=== PATIENT | male | born 1950 | race Caucasian/White ===

== ENCOUNTER 2016-10-13 17:45 | Inpatient (IN) | payer MEDICARE ==
[2016-10-13] MEDS ORDERED: IPRATROPIUM 0.5 MG/2.5 ML NEBU INHALATION STA (17:57)
[2016-10-13] MEDS ORDERED: ALBUTEROL NEBULIZED 2.5 MG/3 ML INHALATION STA (17:57)
[2016-10-13] MEDS ORDERED: SODIUM CHLORIDE 0.9% 1,000 ML IV STA ×2 (17:57)
[2016-10-13] MEDS ORDERED: ACETAMINOPHEN TAB 500 MG TAB PO STA (17:58)
[2016-10-13] MEDS ORDERED: IBUPROFEN 600 MG TAB PO STA (17:58)
[2016-10-13 18:19] LABS: Basophils % (A) 1 %; CH 32.8; CHCM 34.8; Eosinophils % (A) 0 %; HCT 39.7 % (39.0-53.0); HGB 13.2 gm/dL (13.0-17.5); Luc % (Auto) 3; Lymphocytes # (A) 0.4 k/uL (1.0-4.8); Lymphocytes % (A) 5 %; MCH 31.6 pg (25.0-35.0); MCHC 33.4 g/dL (31.0-37.0); MCV 94.6 fL (80.0-100.0); Mean Platelet Volume 6.9; Monocytes % (A) 12 %; Neutrophils # (A) 6.4 k/uL (1.3-7.7); Neutrophils % (A) 79 %; RBC 4.19 m/uL (4.30-5.90); WBC 8.1 k/uL (3.8-10.6); WBC (Perox) 7.58
[2016-10-13 18:26] LABS: INR 1.1 (<1.1)
[2016-10-13 18:32] LABS: ALT 36 U/L (21-72); AST 31 U/L (17-59); Alkaline Phosphatase 114 U/L (38-126); Anion Gap 12 mmol/L; Blood Urea Nitrogen 11 mg/dL (9-20); Carbon Dioxide 23 mmol/L (22-30); Chloride 95 mmol/L (98-107); Glucose 86 mg/dL (74-99); Magnesium 1.8 mg/dL (1.6-2.3); Non-African American GFR(MDRD) >60 (>60 ml/min/1.73 sqM); Potassium 4.1 mmol/L (3.5-5.1); Sodium 130 mmol/L (137-145); Total Bilirubin 0.7 mg/dL (0.2-1.3); Total Protein 6.9 g/dL (6.3-8.2)
[2016-10-13] MEDS ORDERED: LEVOFLOXACIN 750MG-D5W PMX 750 MG in DEXTROSE/WATER 1 150ML.BAG IVPB STA (18:42)
[2016-10-13] MEDS ORDERED: MORPHINE SULFATE 4 MG/ML SYRINGE IVP STA (18:42)
[2016-10-13] MEDS ORDERED: MORPHINE SULFATE 4 MG/ML SYRINGE IVP PRN (18:42)
[2016-10-13] MEDS ORDERED: LEVOFLOXACIN 750MG-D5W PMX 750 MG in DEXTROSE/WATER 1 150ML.BAG IVPB SCH (18:45)
[2016-10-13] MEDS ORDERED: PNEUMONIA PROTOCOL UTILIZED 1 EACH MISC PO PRN (18:54)
--- NOTE | 2016-10-13 18:56 | ED ---
General Adult HPI - General Chief complaint: Shortness of Breath Stated complaint: SOB Time Seen by Provider: 10/13/16 17:57 Source: patient, RN notes reviewed, old records reviewed Mode of arrival: wheelchair Limitations: no limitations - History of Present Illness Initial comments: This is a 65-year-old male to the ER for evaluation stressing of breath cough and congestion. Patient states he is having increasing shortness of breath worse with ambulation worse with activity. No recent travel history and no sick contacts. Patient has no recent hospitalizations. Patient has had a loose productive cough 1 week. No modifying factors at home - Related Data Home Medications Medication Instructions Recorded Confirmed Aspirin [Adult Low Dose Aspirin EC] 81 mg PO DAILY 12/10/15 10/13/16 Furosemide [Lasix] 10 mg PO DAILY PRN 12/10/15 10/13/16 Losartan Potassium [Cozaar] 100 mg PO DAILY 10/13/16 10/13/16 amLODIPine BESYLATE [Norvasc] 10 mg PO HS 10/13/16 10/13/16 diphenhydrAMINE HCL [Benadryl] 25 mg PO HS PRN 10/13/16 10/13/16 Allergies Allergy/AdvReac Type Severity Reaction Status Date / Time No Known Allergies Allergy Verified 10/13/16 18:25 Review of Systems ROS Statement: Those systems with pertinent positive or pertinent negative responses have been documented in the HPI. ROS Other: All systems not noted in ROS Statement are negative. Past Medical History Past Medical History: Heart Failure, Hypertension History of Any Multi-Drug Resistant Organisms: None Reported Past Surgical History: No Surgical Hx Reported Additional Past Surgical History / Comment(s): jaw Past Psychological History: No Psychological Hx Reported Smoking Status: Current every day smoker Past Alcohol Use History: Daily Past Drug Use History: None Reported General Exam Limitations: no limitations General appearance: alert, in no apparent distress, anxious, in distress, obese Head exam: Present: atraumatic, normocephalic, normal inspection Eye exam: Present: normal appearance, PERRL, EOMI. Absent: scleral icterus, conjunctival injection, periorbital swelling ENT exam: Present: mucous membranes dry Neck exam: Present: normal inspection. Absent: tenderness, meningismus, lymphadenopathy Respiratory exam: Present: normal lung sounds bilaterally, wheezes, chest wall tenderness, accessory muscle use, decreased breath sounds. Absent: respiratory distress, rales, rhonchi, stridor Cardiovascular Exam: Present: normal rhythm, tachycardia, normal heart sounds. Absent: systolic murmur, diastolic murmur, rubs, gallop, clicks GI/Abdominal exam: Present: soft, normal bowel sounds. Absent: distended, tenderness, guarding, rebound, rigid Extremities exam: Present: normal inspection, full ROM, normal capillary refill. Absent: tenderness, pedal edema, joint swelling, calf tenderness Back exam: Present: normal inspection Neurological exam: Present: alert, oriented X3, CN II-XII intact Psychiatric exam: Present: normal affect, normal mood Skin exam: Present: warm, dry, intact, normal color. Absent: rash Course Vital Signs 10/13/16 10/13/16 10/13/16 17:51 18:48 18:53 Temperature 101.8 F H Pulse Rate 101 H 96 96 Respiratory 22 20 Rate Blood Pressure 198/93 192/88 O2 Sat by Pulse 98 100 Oximetry 10/13/16 10/13/16 10/13/16 19:03 19:12 19:23 Temperature Pulse Rate 96 97 97 Respiratory Rate Blood Pressure O2 Sat by Pulse Oximetry 10/13/16 10/13/16 19:30 19:46 Temperature 99.0 F Pulse Rate 93 Respiratory 20 Rate Blood Pressure 176/77 O2 Sat by Pulse 95 Oximetry - Reevaluation(s) Reevaluation #1: 10/13/16 19:51 Patient is improved with breathing treatment and fever control EKG Findings - EKG Comments: EKG Findings:: EKG shows sinus rhythm rate of 98, WV 202, QRS 132, QTC 487 Medical Decision Making - Medical Decision Making 65 male ER for evaluation of shortness of breath cough and congestion, positive pneumonia x-ray with fever and elevated heart rate. Patient BMA for IV antibiotics and breathing treatments. Cardiopulmonary resuscitation and observation - Lab Data Result diagrams: 10/13/16 17:58 10/13/16 17:58 Lab Results 10/13/16 10/13/16 10/13/16 Range/Units 17:58 17:58 17:58 WBC 8.1 (3.8-10.6) k/uL RBC 4.19 L (4.30-5.90) m/uL Hgb 13.2 (13.0-17.5) gm/dL Hct 39.7 (39.0-53.0) % MCV 94.6 (80.0-100.0) fL MCH 31.6 (25.0-35.0) pg MCHC 33.4 (31.0-37.0) g/dL RDW 13.0 (11.5-15.5) % Plt Count 262 (150-450) k/uL Neutrophils % 79 % Lymphocytes % 5 % Monocytes % 12 % Eosinophils % 0 % Basophils % 1 % Neutrophils # 6.4 (1.3-7.7) k/uL Lymphocytes # 0.4 L (1.0-4.8) k/uL Monocytes # 1.0 (0-1.0) k/uL Eosinophils # 0.0 (0-0.7) k/uL Basophils # 0.0 (0-0.2) k/uL PT (9.0-12.0) sec INR (<1.1) APTT (22.0-30.0) sec Sodium 130 L (137-145) mmol/L Potassium 4.1 (3.5-5.1) mmol/L Chloride 95 L (98-107) mmol/L Carbon Dioxide 23 (22-30) mmol/L Anion Gap 12 mmol/L BUN 11 (9-20) mg/dL Creatinine 0.86 (0.66-1.25) mg/dL Est GFR (MDRD) Af Amer >60 (>60 ml/min/1.73 sqM) Est GFR (MDRD) Non-Af >60 (>60 ml/min/1.73 sqM) Glucose 86 (74-99) mg/dL Plasma Lactic Acid Severiano (0.7-2.0) mmol/L Calcium 9.0 (8.4-10.2) mg/dL Magnesium 1.8 (1.6-2.3) mg/dL Total Bilirubin 0.7 (0.2-1.3) mg/dL AST 31 (17-59) U/L ALT 36 (21-72) U/L Alkaline Phosphatase 114 (38-126) U/L Total Creatine Kinase 388 H (55-170) U/L CK-MB (CK-2) 2.0 (0.0-2.4) ng/mL CK-MB (CK-2) Rel Index 0.5 Troponin I 0.050 H* (0.000-0.034) ng/mL NT-Pro-B Natriuret Pep pg/mL Total Protein 6.9 (6.3-8.2) g/dL Albumin 3.9 (3.5-5.0) g/dL 10/13/16 10/13/16 10/13/16 Range/Units 17:58 17:58 17:58 WBC (3.8-10.6) k/uL RBC (4.30-5.90) m/uL Hgb (13.0-17.5) gm/dL Hct (39.0-53.0) % MCV (80.0-100.0) fL MCH (25.0-35.0) pg MCHC (31.0-37.0) g/dL RDW (11.5-15.5) % Plt Count (150-450) k/uL Neutrophils % % Lymphocytes % % Monocytes % % Eosinophils % % Basophils % % Neutrophils # (1.3-7.7) k/uL Lymphocytes # (1.0-4.8) k/uL Monocytes # (0-1.0) k/uL Eosinophils # (0-0.7) k/uL Basophils # (0-0.2) k/uL PT 11.0 (9.0-12.0) sec INR 1.1 (<1.1) APTT 28.0 (22.0-30.0) sec Sodium (137-145) mmol/L Potassium (3.5-5.1) mmol/L Chloride (98-107) mmol/L Carbon Dioxide (22-30) mmol/L Anion Gap mmol/L BUN (9-20) mg/dL Creatinine (0.66-1.25) mg/dL Est GFR (MDRD) Af Amer (>60 ml/min/1.73 sqM) Est GFR (MDRD) Non-Af (>60 ml/min/1.73 sqM) Glucose (74-99) mg/dL Plasma Lactic Acid Severiano 1.6 (0.7-2.0) mmol/L Calcium (8.4-10.2) mg/dL Magnesium (1.6-2.3) mg/dL Total Bilirubin (0.2-1.3) mg/dL AST (17-59) U/L ALT (21-72) U/L Alkaline Phosphatase (38-126) U/L Total Creatine Kinase (55-170) U/L CK-MB (CK-2) (0.0-2.4) ng/mL CK-MB (CK-2) Rel Index Troponin I (0.000-0.034) ng/mL NT-Pro-B Natriuret Pep 1690 pg/mL Total Protein (6.3-8.2) g/dL Albumin (3.5-5.0) g/dL - Radiology Data Radiology results: report reviewed (Chest x-ray two-view is positive for pneumonia), image reviewed Critical Care Time Critical Care Time: Yes Total Critical Care Time: 31 Disposition Clinical Impression: Community acquired pneumonia, Asthma with exacerbation, Acute exacerbation of chronic obstructive airways disease Disposition: ADMITTED IP TO THIS [facility] Condition: Serious Referrals: Nichelle Smallwood MD [Primary Care Provider] - 1-2 days
--- NOTE | 2016-10-13 19:04 | XR ---
EXAMINATION TYPE: XR chest 1V portable DATE OF EXAM: 10/13/2016 6:52 PM COMPARISON: Chest radiograph of 12/10/2015. HISTORY: Shortness of breath. TECHNIQUE: Single frontal view of the chest is obtained. FINDINGS: There is a large focal consolidation involving the right midlung and right lower lobe supe rimposed upon mild pulmonary vascular congestion. Additionally there is hilar enlargement, right grea ter than left and reticular opacity within the right lung base. Linear left basilar atelectasis is no prema with mild resultant volume loss visualized as left hemidiaphragm elevation, which is chronic in n ature. Cardia mediastinal silhouette is unremarkable. Osseous structures are intact in their visualiz ed portions. IMPRESSION: 1. Right midlung and right lower lobe focal opacity with hilar consolidations, right greater than lef t. Although findings are concerning for infectious etiology in the appropriate clinical setting evalu ation for underlying neoplasm is recommended due to since the right hilar prominence. 2. Mild pulmonary vascular congestion.
[2016-10-13 19:05] LABS: Troponin I 0.05 ng/mL (0.000-0.034)
[2016-10-13] MEDS: SODIUM CHLORIDE 0.9% 1,000 ML IV SCH (20:02)
[2016-10-13 21:19] VITALS: BMI 35.2
[2016-10-14 00:20] LABS: Appearance,Urine Clear (Clear); Bilirubin,Urine Negative (Negative); Glucose,Urine (UA) Negative (Negative); Ketones,Urine 1+ (Negative); Leukocyte Esterase,Urine Negative (Negative); Nitrite,Urine Negative (Negative); PH, Urine 5.5 (5.0-8.0); Protein,Urine Trace (Negative); Specific Gravity,Urine 1.014 (1.001-1.035); UA Billing (MACRO vs. MICRO) CHEM; Urobilinogen,Urine <2.0 mg/dL (<2.0)
[2016-10-14] MEDS: IPRATROPIUM-ALBUTEROL 3 ML NEB INHALATION SCH ×5 (00:24→19:35)
[2016-10-14] MEDS: SODIUM CHLORIDE 0.9% 1,000 ML IV SCH ×3 (06:28→18:02)
[2016-10-14 09:30] LABS: Basophils % (A) 0 %; CH 32.3; CHCM 33.4; Eosinophils % (A) 0 %; HCT 38.5 % (39.0-53.0); HDW 2.21; HGB 12.8 gm/dL (13.0-17.5); Luc # (Auto) 0.19; Luc % (Auto) 4; Lymphocytes # (A) 0.6 k/uL (1.0-4.8); Lymphocytes % (A) 12 %; MCH 32.2 pg (25.0-35.0); MCHC 33.3 g/dL (31.0-37.0); Mean Platelet Volume 6.8; Monocytes # (A) 0.7 k/uL (0-1.0); Monocytes % (A) 15 %; Neutrophils # (A) 3.3 k/uL (1.3-7.7); Neutrophils % (A) 69 %; RBC 3.98 m/uL (4.30-5.90); RDW 13.2 % (11.5-15.5); WBC 4.8 k/uL (3.8-10.6); WBC (Perox) 5.23
--- NOTE | 2016-10-14 09:44 | XR ---
EXAMINATION TYPE: XR chest 2V DATE OF EXAM: 10/14/2016 7:46 AM COMPARISON: 10/13/2016 HISTORY: Shortness of breath FINDINGS: There are bilateral pleural effusions with cardiomegaly and bibasilar infiltrate. There is a diffuse interstitial pattern. Right perihilar consolidation stable. Underlying COPD and biapical pleural thi ckening noted. The heart is enlarged. IMPRESSION: 1. Bilateral areas of infiltrate and small effusion superimposed on a background COPD. Correlate for pneumonia versus pulmonary edema. Underlying neoplasm not excluded within the right hilum.
[2016-10-14] MEDS: ASPIRIN 81 MG CHEW PO SCH (09:53)
[2016-10-14] MEDS: LOSARTAN 50 MG TAB PO SCH (09:53)
[2016-10-14] MEDS: ENOXAPARIN 40 MG/0.4 ML SYRINGE SQ SCH (09:53)
[2016-10-14 11:50] LABS: ALT 34 U/L (21-72); AST 34 U/L (17-59); Alkaline Phosphatase 98 U/L (38-126); Anion Gap 11 mmol/L; Blood Urea Nitrogen 12 mg/dL (9-20); Calcium 8.7 mg/dL (8.4-10.2); Carbon Dioxide 23 mmol/L (22-30); Chloride 99 mmol/L (98-107); Glucose 96 mg/dL (74-99); Non-African American GFR(MDRD) >60 (>60 ml/min/1.73 sqM); Potassium 4.2 mmol/L (3.5-5.1); Sodium 133 mmol/L (137-145); Total Bilirubin 0.7 mg/dL (0.2-1.3); Total Protein 6.1 g/dL (6.3-8.2)
[2016-10-14] MEDS ORDERED: hydrALAZINE HCL 25 MG TAB PO STA (11:51)
[2016-10-14] MEDS: NICOTINE 21MG/24HR PATCH TRANSDERM SCH (12:14)
[2016-10-14] MEDS ORDERED: RX INFO: IV CONTRAST WAS GIVEN 1 EACH MISC MISCELLANE PRN (13:20)
--- NOTE | 2016-10-14 13:55 | P.HPIM ---
History of Present Illness H&P Date: 10/14/16 Chief Complaint: Worsening shortness of breath with cough This is a 65-year-old male, patient of Dr. Smallwood. He has a known past medical history of congestive heart failure, hypertension and a 2 pack-a-day smoker. Patient reports having symptoms about 3 weeks. Over the last few days they have gotten worse. Shortness of breath has worsened with activity. Cough is nonproductive. He was taking [id number] medication with no relief. Chest x-ray shows right mid lung and right lower lobe focal opacity with Heller consolidations, right greater than left. Patient needs to be evaluated for possible underlying neoplasm due to right hilar prominence. Also noted to have mild pulmonary vascular congestion. Pulmonary service was consulted. Patient was started on IV Levaquin for pneumonia. He did have a temperature of 101.8 on admission. Patient's blood pressures of also been elevated his home medications have been restarted. Patient denies any chest pain. Denies any nausea or vomiting. Denies any bowel movement changes or urinary symptoms. EKG had shown sinus rhythm with PAC. Review of Systems Please refer to HPI otherwise unremarkable Past Medical History Past Medical History: Heart Failure, Hypertension History of Any Multi-Drug Resistant Organisms: None Reported Past Surgical History: No Surgical Hx Reported Additional Past Surgical History / Comment(s): jaw Past Anesthesia/Blood Transfusion Reactions: No Reported Reaction Past Psychological History: No Psychological Hx Reported Smoking Status: Current every day smoker Past Alcohol Use History: Daily Past Drug Use History: None Reported Medications and Allergies Home Medications Medication Instructions Recorded Confirmed Type Aspirin [Adult Low Dose Aspirin EC] 81 mg PO DAILY 12/10/15 10/13/16 History Furosemide [Lasix] 10 mg PO DAILY PRN 12/10/15 10/13/16 History Losartan Potassium [Cozaar] 100 mg PO DAILY 10/13/16 10/13/16 History amLODIPine BESYLATE [Norvasc] 10 mg PO HS 10/13/16 10/13/16 History diphenhydrAMINE HCL [Benadryl] 25 mg PO HS PRN 10/13/16 10/13/16 History Allergies Allergy/AdvReac Type Severity Reaction Status Date / Time No Known Allergies Allergy Verified 10/13/16 18:25 Physical Exam Vitals: Vital Signs Temp Pulse Pulse Resp BP BP Pulse Ox 10/14/16 08:21 76 10/14/16 08:13 72 10/14/16 08:00 96.4 F L 72 18 170/80 95 10/14/16 04:00 98.0 F 70 18 158/79 93 L 10/14/16 00:00 97.6 F 72 18 147/74 95 10/13/16 20:22 90 20 151/72 95 10/13/16 20:19 98.0 F 85 18 136/86 95 10/13/16 20:11 91 16 171/77 20 L 10/13/16 19:46 99.0 F 10/13/16 19:30 93 20 176/77 95 10/13/16 19:23 97 10/13/16 19:12 97 10/13/16 19:03 96 Intake and Output 10/13/16 10/14/16 10/14/16 22:59 06:59 14:59 Intake Total 237 Output Total 1000 450 Balance -1000 -450 237 Intake: Oral 237 Output: Urine 1000 450 Other: Voiding Method Urinal # Voids 1 1 Weight 117.934 kg 118.6 kg Head normocephalic Neck supple Lungs coarse breath sounds noted bilaterally Heart regular rate and rhythm S1-S2, no rub or gallop Abdomen is soft nontender nondistended positive bowel sounds no hepatosplenomegaly Extremities no edema Neuro alert and orientated to 3 Results CBC & Chem 7: 10/14/16 05:27 10/14/16 05:27 Labs: Abnormal Lab Results - Last 24 Hours (Table) 10/14/16 Range/Units 05:27 RBC 3.98 L (4.30-5.90) m/uL Hgb 12.8 L (13.0-17.5) gm/dL Hct 38.5 L (39.0-53.0) % Lymphocytes # 0.6 L (1.0-4.8) k/uL Thrombosis Risk Factor Assmnt - Choose All That Apply Each Risk Factor Represents 2 Points: Age 61-74 years Thrombosis Risk Factor Assessment Total Risk Factor Score: 2 Thrombosis Risk Factor Assessment Level: Low Risk Assessment and Plan Plan: 1. Pneumonia: Chest x-ray shows right midlung and right lower lobe focal opacity with hilar consolidations. Cannot exclude neoplasm. As well as evidence of mild pulmonary vascular congestion. Pulmonary service has been consulted. Patient started on IV Levaquin. Sputum culture ordered. Add Mucinex. Check computed tomography scan of the chest. 2. Essential hypertension with episode of accelerated hypertension present on admission. resume home medications. continue to monitor blood pressure. Patient's repeat blood pressure remains elevated. We'll give 1 dose of hydralazine 25 mg by mouth 1 3. Nicotine dependence: Counseled patient on smoking cessation for greater than 5 minutes. Add nicotine patch 4. Fever spike secondary to pneumonia: check blood culture 5. Hyponatremia: Sodium of 130. Repeat labs. Hold Lasix for now 6. Mild fluid overload with elevated BNP chest x-ray showing mild pulmonary vascular congestion. Check echo. Hep-Lock IV. CODE STATUS: No code GI prophylaxis Pepcid and DVT prophylaxis Lovenox Time with Patient: Greater than 30 (Greater than 50% of the total time spent in counseling and coordination of care.I performed an examination of the patient and discussed their management with the physician Wedding Consultant. I have reviewed the Physician Wedding Consultant's notes and agree with the documented findings and plan of care)
--- NOTE | 2016-10-14 14:54 | CT ---
EXAMINATION TYPE: CT chest w con DATE OF EXAM: 10/14/2016 2:48 PM COMPARISON: NONE HISTORY: Abnormal chest xray. Possible neoplasm. CT DLP: 474.80 mGycm Automated exposure control for dose reduction was used. CONTRAST: CT scan of the chest is performed with IV Contrast, patient injected with 100 mL of Omnipaque 300. FINDINGS: LUNGS: Masslike area of consolidation about the right perihilar region measuring 3 x 4.4 x 5.6 cm. Th ere is postobstructive pneumonia identified. The remainder of the lungs are clear. Hyperinflation com patible with COPD. MEDIASTINUM: Right hilar adenopathy measuring up to 1.8 cm in short axis. Subcentimeter mediastinal l ymph nodes identified. Atheromatous and ectatic change of the thoracic aorta. Mild cardiomegaly ident ified. UPPER ABDOMEN: Large simple appearing cyst upper pole left kidney measuring 5.9 cm. OTHER: No additional significant abnormality is seen. IMPRESSION: 1. Right perihilar masslike density may reflect malignancy. Strict clinical correlation advised. Cons ider bronchoscopic evaluation. 2. Postobstructive pneumonia. 3. Right hilar adenopathy.
[2016-10-14] MEDS ORDERED: THIAMINE 100 MG/ML 2 ML VIAL IM STA (15:17)
[2016-10-14] MEDS ORDERED: LORazepam 2 MG/ML SYRINGE IV PRN ×3 (15:17)
[2016-10-14] MEDS ORDERED: Potassium Replacement Protocol 1 EACH MISC MISCELLANE PRN (15:28)
[2016-10-14] MEDS ORDERED: Magnesium Replacement Protocol 1 EACH MISC MISCELLANE PRN (15:28)
[2016-10-14] MEDS ORDERED: MORPHINE SULFATE 4 MG/ML SYRINGE IVP PRN (15:29)
[2016-10-14] MEDS: hydrALAZINE HCL 20 MG/ML 1 ML VIAL IVP PRN (15:50)
[2016-10-14] MEDS: CLINDAMYCIN 600 MG in DEXTROSE 5% IN WATER 50 ML IVPB SCH ×4 (16:06→23:07)
[2016-10-14] MEDS: amLODIPine 10 MG TAB PO SCH (16:25)
[2016-10-14] MEDS ORDERED: THIAMINE 100 MG TAB PO SCH (17:00)
--- NOTE | 2016-10-14 17:55 | P.CNPUL ---
History of Present Illness Consult date: 10/14/16 Reason for consult: COPD, pneumonia History of present illness: 65-year-old male patient, a chronic smoker, a primary of Dr. Mix, who presented to the hospital because of 2 months worth of respiratory difficulties. The patient was reporting increased cough chest congestion wheezing and some limited sputum production. It seems that his condition has gotten worse over the past week or so on for that reason he came into the hospital for further advice. His cough was nonproductive at this point. No significant sputum production. No hemoptysis. No pleurisy. Chest x-ray showed a dense consolidation the right perihilar area extending to the right mid and a right lower lobe. For that reason the patient was admitted to the hospital. The patient was started on IV antibiotics steroids and bronchodilators and currently is on empiric antibiotic coverage for Levaquin regarding a pneumonia. He did have a spike of temperature of 11.8 at time of admission. Subsequent chest x-ray from today showed persistent infiltration in the right perihilar area and this led to a CAT scan of the chest that showed a consolidating mass like infiltrate in the right perihilar area. This area that was masslike measured 5.6 x 4.4 x 3 cm in size and there was a concern of an underlying malignancy. For that reason a primary consultation was requested. The mediastinum showed subcentimeter lymph nodes that are nonpathologic. Her was right hilar adenopathy measuring 1.8 cm in size. The patient is not known to have any cardiac disease. No previous bouts of pneumonias. No swelling lower extremities. No exposure to TB. No travel history. Review of Systems Full review of system was done and the positive findings are almost above history of present illness Past Medical History Past Medical History: Heart Failure, Hypertension Additional Past Medical History / Comment(s): Hypertension, congestion heart failure History of Any Multi-Drug Resistant Organisms: None Reported Past Surgical History: No Surgical Hx Reported Additional Past Surgical History / Comment(s): jaw surgery Past Anesthesia/Blood Transfusion Reactions: No Reported Reaction Past Psychological History: No Psychological Hx Reported Smoking Status: Current every day smoker Past Alcohol Use History: Daily Past Drug Use History: None Reported Medications and Allergies Home Medications Medication Instructions Recorded Confirmed Type Aspirin [Adult Low Dose Aspirin EC] 81 mg PO DAILY 12/10/15 10/13/16 History Furosemide [Lasix] 10 mg PO DAILY PRN 12/10/15 10/13/16 History Losartan Potassium [Cozaar] 100 mg PO DAILY 10/13/16 10/13/16 History amLODIPine BESYLATE [Norvasc] 10 mg PO HS 10/13/16 10/13/16 History diphenhydrAMINE HCL [Benadryl] 25 mg PO HS PRN 10/13/16 10/13/16 History Allergies Allergy/AdvReac Type Severity Reaction Status Date / Time No Known Allergies Allergy Verified 10/13/16 18:25 Physical Exam Vitals: Vital Signs Temp Pulse Pulse Resp BP BP Pulse Ox 10/14/16 16:00 96 18 211/96 98 10/14/16 15:39 72 10/14/16 15:29 68 10/14/16 13:41 70 199/91 10/14/16 12:07 76 10/14/16 11:50 78 10/14/16 11:47 96.9 F L 74 18 184/94 99 10/14/16 08:21 76 10/14/16 08:13 72 10/14/16 08:00 96.4 F L 72 18 170/80 95 10/14/16 04:00 98.0 F 70 18 158/79 93 L 10/14/16 00:00 97.6 F 72 18 147/74 95 10/13/16 20:22 90 20 151/72 95 10/13/16 20:19 98.0 F 85 18 136/86 95 10/13/16 20:11 91 16 171/77 20 L 10/13/16 19:46 99.0 F 10/13/16 19:30 93 20 176/77 95 10/13/16 19:23 97 10/13/16 19:12 97 10/13/16 19:03 96 Intake and Output 10/14/16 10/14/16 10/14/16 06:59 14:59 22:59 Intake Total 417 Output Total 450 100 600 Balance -450 317 -600 Intake: Oral 417 Output: Urine 450 100 600 Other: Voiding Method Urinal # Voids 1 Weight 118.6 kg Head exam was generally normal. There was no scleral icterus or corneal arcus. Mucous membranes were moist.Neck was supple and without jugular venous distension, thyromegaly, or carotid bruits. Carotids were easily palpable bilaterally. There was no adenopathy. Lung sounds are diminished bilaterally and there is some few scattered expiratory wheezes throughout the lung guzman.Cardiac exam revealed the PMI to be normally situated and sized. The rhythm was regular and no extrasystoles were noted during several minutes of auscultation. The first and second heart sounds were normal and physiologic splitting of the second heart sound was noted. There were no murmurs, rubs, clicks, or gallops.Abdominal exam revealed normal bowel sounds. The abdomen was soft, non-tender, and without masses, organomegaly, or appreciable enlargement of the abdominal aorta.Examination of the extremities revealed easily palpable radial, femoral and pedal pulses. There was no cyanosis, clubbing or edema. Results - Laboratory Findings CBC and BMP: 10/14/16 05:27 10/14/16 05:27 PT/INR, D-dimer PT 11.0 sec (9.0-12.0) 10/13/16 17:58 INR 1.1 (<1.1) 10/13/16 17:58 Abnormal lab findings: Abnormal Labs 10/14/16 10/14/16 10/14/16 05:27 05:27 05:27 RBC 3.98 L Hgb 12.8 L Hct 38.5 L Lymphocytes # 0.6 L Sodium 133 L Creatine Kinase 562 H Troponin I Total Protein 6.1 L Albumin 3.4 L 10/14/16 05:27 RBC Hgb Hct Lymphocytes # Sodium Creatine Kinase Troponin I 0.045 H* Total Protein Albumin - Diagnostic Findings Chest x-ray: image reviewed CT scan - chest: image reviewed Assessment and Plan Plan: Impression 1 right perihilar pneumonia extending to the right mid/right lower lung area. CAT scan of the chest was reviewed and there is an appearance of a consolidating masslike lesion within the right hilar area, however upon careful review and based on the patient's clinical manifestations and symptoms, I favor pneumonia over malignancy. I also noted a tiny right hilar lymph node that needs to be monitored. The patient is currently on a combination of Levaquin and clindamycin. 2 right hilar lymphadenopathy measuring 1.8 cm in size along with some small mediastinal lymph nodes 3 COPD 4 nicotine addiction/smoking 5 hypertension 6 CHF 7 nonspecific troponin leak Plan Continue the bronchodilators and steroids and antibiotics for now. Monitor chest x-ray over the next 24-48 hours. I agree on the current antibiotic coverage. The patient will need a bronchoscopy if the right lung findings remain unchanged. Otherwise, feeling of this pulmonary infiltrates with antibiotics with suggest and support a diagnosis of a pneumonia. We'll continue following up this patient closely. Smoking cessation counseling was done. We'll continue to follow
[2016-10-14] MEDS: cloNIDine HCL 0.1 MG TAB PO SCH ×2 (17:56→23:08)
[2016-10-14] MEDS: LEVOFLOXACIN 500MG-D5W PMX 500 MG in DEXTROSE/WATER 1 100ML.BAG IVPB SCH (17:58)
[2016-10-14] MEDS ORDERED: LEVOFLOXACIN 750MG-D5W PMX 750 MG in DEXTROSE/WATER 1 150ML.BAG IVPB SCH (19:00)
[2016-10-14] MEDS ORDERED: HEPARIN SODIUM,PORCINE 5,000 UNIT/ML 1 ML VIAL SQ SCH (21:00)
[2016-10-14] MEDS: guaiFENesin 600 MG TABLET.ER PO SCH (21:23)
[2016-10-14] MEDS: diphenhydrAMINE 25 MG CAP PO PRN (23:07)
[2016-10-15 06:28] LABS: Basophils % (A) 1 %; CH 32.5; CHCM 34.1; Eosinophils % (A) 0 %; HCT 38.6 % (39.0-53.0); HDW 2.31; HGB 12.5 gm/dL (13.0-17.5); Luc # (Auto) 0.18; Luc % (Auto) 3; Lymphocytes # (A) 0.6 k/uL (1.0-4.8); Lymphocytes % (A) 11 %; MCH 30.9 pg (25.0-35.0); MCHC 32.3 g/dL (31.0-37.0); MCV 95.8 fL (80.0-100.0); Mean Platelet Volume 7.4; Monocytes # (A) 0.7 k/uL (0-1.0); Monocytes % (A) 12 %; Neutrophils # (A) 4.2 k/uL (1.3-7.7); Neutrophils % (A) 73 %; RBC 4.03 m/uL (4.30-5.90); RDW 13.2 % (11.5-15.5); WBC 5.7 k/uL (3.8-10.6); WBC (Perox) 5.52
[2016-10-15 06:41] LABS: ALT 39 U/L (21-72); AST 37 U/L (17-59); Alkaline Phosphatase 93 U/L (38-126); Anion Gap 11 mmol/L; Blood Urea Nitrogen 15 mg/dL (9-20); Calcium 8.8 mg/dL (8.4-10.2); Carbon Dioxide 23 mmol/L (22-30); Chloride 99 mmol/L (98-107); Glucose 97 mg/dL (74-99); Magnesium 1.7 mg/dL (1.6-2.3); Non-African American GFR(MDRD) >60 (>60 ml/min/1.73 sqM); Potassium 4.1 mmol/L (3.5-5.1); Sodium 133 mmol/L (137-145); Total Bilirubin 0.5 mg/dL (0.2-1.3); Total Protein 6.3 g/dL (6.3-8.2)
[2016-10-15] MEDS: ENOXAPARIN 40 MG/0.4 ML SYRINGE SQ SCH (07:41)
[2016-10-15] MEDS: LOSARTAN 50 MG TAB PO SCH (07:42)
[2016-10-15] MEDS: FAMOTIDINE 20 MG TAB PO SCH (07:42)
[2016-10-15] MEDS: cloNIDine HCL 0.1 MG TAB PO SCH ×3 (07:42→22:28)
[2016-10-15] MEDS: NICOTINE 21MG/24HR PATCH TRANSDERM SCH (07:42)
[2016-10-15] MEDS: THIAMINE 100 MG TAB PO SCH (07:43)
[2016-10-15] MEDS: MULTIVITAMINS, THERA 1 EACH TAB PO SCH (07:43)
[2016-10-15] MEDS: FOLIC ACID 1 MG TAB PO SCH (07:43)
[2016-10-15] MEDS: guaiFENesin 600 MG TABLET.ER PO SCH ×2 (07:43→20:06)
[2016-10-15] MEDS: ASPIRIN 81 MG CHEW PO SCH (07:43)
[2016-10-15] MEDS: CLINDAMYCIN 600 MG in DEXTROSE 5% IN WATER 50 ML IVPB SCH ×6 (07:52→23:41)
[2016-10-15] MEDS: IPRATROPIUM-ALBUTEROL 3 ML NEB INHALATION SCH ×4 (08:03→20:27)
--- NOTE | 2016-10-15 08:38 | ECHOF ---
Referral Reason:CHF? MEASUREMENTS -------- HEIGHT: 182.9 cm WEIGHT: 118.4 kg BP: 184/94 RVIDd: 3.1 cm (< 3.3) IVSd: 1.5 cm (0.6 - 1.1) LVIDd: 4.5 cm (3.9 - 5.3) LVPWd: 1.6 cm (0.6 - 1.1) IVSs: 2.2 cm LVIDs: 3.1 cm LVPWs: 1.9 cm LA Diam: 3.4 cm (2.7 - 3.8) Ao Diam: 3.5 cm (2.0 - 3.7) AV Cusp: 1.8 cm (1.5 - 2.6) LA Diam: 3.4 cm (2.7 - 3.8) MV EXCURSION: 13.601 mm (> 18.000) MV EF SLOPE: 59 mm/s (70 - 150) EPSS: 0.8 cm MV E Rudy: 1.12 m/s MV DecT: 159 ms MV A Rudy: 1.29 m/s MV E/A Ratio: 0.86 AV maxP.26 mmHg AV meanP.35 mmHg RAP: 5.00 mmHg RVSP: 38.02 mmHg FINDINGS -------- Sinus rhythm. This was a technically difficult study with suboptimal views. There is moderate concentric left ventricular hypertrophy. Overall left ventricular systolic function is normal with, an EF between 55 - 60 %. The right ventricle is normal in size. The left atrial size is normal. The right atrium is normal in size. Aortic valve is trileaflet and is mildly thickened. There is mild aortic stenosis present. Peak/mean gradient across the Aortic Valve is 21.26mmHg / 11.35mmHg. The mitral valve leaflets are mildly thickened. Mild mitral annular calcification present. Mild tricuspid regurgitation present. There is mild pulmonary hypertension. The right ventricular systolic pressure, as measured by Doppler, is 38.02mmHg. The pulmonic valve was not well visualized. The aortic root size is normal. Normal inferior vena cava with normal inspiratory collapse consistent with estimated right atrial pressure of 5 mmHg. Echo free space may represent effusion or a pericardial fat pad. CONCLUSIONS -------- 1. Sinus rhythm. 2. Peak/mean gradient across the Aortic Valve is 21.26mmHg / 11.35mmHg. 3. The mitral valve leaflets are mildly thickened. 4. Mild mitral annular calcification present. 5. Mild tricuspid regurgitation present. 6. There is mild pulmonary hypertension. 7. The right ventricular systolic pressure, as measured by Doppler, is 38.02mmHg. 8. The pulmonic valve was not well visualized. 9. The aortic root size is normal. 10. Echo free space may represent effusion or a pericardial fat pad. 11. This was a technically difficult study with suboptimal views. 12. There is moderate concentric left ventricular hypertrophy. 13. Overall left ventricular systolic function is normal with, an EF between 55 - 60 %. 14. The right ventricle is normal in size. 15. The left atrial size is normal. 16. The right atrium is normal in size. 17. Aortic valve is trileaflet and is mildly thickened. 18. There is mild aortic stenosis present. SCRAP IRON CUTTER: Magnus Arguello RDCS
--- NOTE | 2016-10-15 12:08 | CONS ---
DATE OF CONSULTATION: CHIEF COMPLAINT: Elevated troponin. Mr. Johnson is a 65-year-old gentleman with history of hypertension and congestive heart failure who presented to the hospital complaining of cough and productive sputum of 3 days duration. Cardiology had been consulted because of mild elevation in troponin. He denies chest pain, paroxysmal nocturnal dyspnea or orthopnea. There is no history of leg edema. The patient had an echocardiogram on this admission that revealed normal LV function. A CT chest that showed a perihilar mass with postobstructive pneumonia. Since admission, patient is feeling better and is free of significant symptoms. Past medical history is significant for hypertension, questionable congestive heart failure. Patient apparently had a non-ST segment elevation [facility] more than a year ago. Medications include Norvasc 10 q. daily, losartan 100 q. daily, Lasix, aspirin and diphenhydramine. ALLERGIES: There are no known drug allergies. Family history is negative for premature coronary artery disease. Social history is significant for smoking. There is no history of EtOH abuse or drug abuse. REVIEW OF SYSTEMS: HEENT is unremarkable. CARDIAC: As described above. RESPIRATORY: As described above. GI: Negative. GENITOURINARY: Negative. ALLERGY/IMMUNOLOGY: Negative. SKIN: Negative. MUSCULOSKELETAL: Significant for arthritis. PSYCHOSOCIAL: Negative. ENDOCRINE: Negative. HEMATOLOGICAL: Negative. DERM: Negative. CONSTITUTIONAL: Negative. OFFICER CAPTAIN: Negative. The rest of the system review is not relevant. On exam, patient is comfortable at rest. Heart rate is 76. ( ) blood pressure is 170/80, respiratory rate is 18, O2 sat is 96% on room air. There is no jugular venous distention. Chest exam reveals occasional rhonchi bilaterally. Heart exam reveals first and second heart sounds. No gallop. No murmur. Abdomen is soft, nontender. Exam of the extremities did not reveal edema. Peripheral pulses are felt. Labs show a hemoglobin of 12.5, platelet count is 247. Sodium is 133. Potassium is 4.1. Creatinine is 1.1. The patient had 3 troponins that are in the craig zone at 0.05 and 0.04. BNP is elevated at 1690. ASSESSMENT: 1. Mild troponin elevation, probably related to the pneumonia, could certainly be due to small non-ST segment elevation myocardial infarction. 2. Mass lesion, probably related to lung cancer. PLAN: The patient is doing well from cardiac standpoint. Has normal LV function and wall motion on the echo. Does not require further cardiac workup at this time. We need to control his blood pressures well. I will obtain a lipid profile and if necessary start him on lipid-lowering agents.
[2016-10-15] MEDS: hydrALAZINE HCL 20 MG/ML 1 ML VIAL IVP PRN (12:11)
--- NOTE | 2016-10-15 12:24 | P.PN ---
Subjective 65-year-old male patient, a chronic smoker, a primary of Dr. Mix, who presented to the hospital because of 2 months worth of respiratory difficulties. The patient was reporting increased cough chest congestion wheezing and some limited sputum production. It seems that his condition has gotten worse over the past week or so on for that reason he came into the hospital for further advice. His cough was nonproductive at this point. No significant sputum production. No hemoptysis. No pleurisy. Chest x-ray showed a dense consolidation the right perihilar area extending to the right mid and a right lower lobe. For that reason the patient was admitted to the hospital. The patient was started on IV antibiotics steroids and bronchodilators and currently is on empiric antibiotic coverage for Levaquin regarding a pneumonia. He did have a spike of temperature of 11.8 at time of admission. Subsequent chest x-ray from today showed persistent infiltration in the right perihilar area and this led to a CAT scan of the chest that showed a consolidating mass like infiltrate in the right perihilar area. This area that was masslike measured 5.6 x 4.4 x 3 cm in size and there was a concern of an underlying malignancy. For that reason a primary consultation was requested. The mediastinum showed subcentimeter lymph nodes that are nonpathologic. Her was right hilar adenopathy measuring 1.8 cm in size. The patient is not known to have any cardiac disease. No previous bouts of pneumonias. No swelling lower extremities. No exposure to TB. No travel history. On 10/15/2016 the patient is being seen in follow-up. With the treating this patient with antibiotics. There is a suspicion for malignancy although the CAT scan is more suggestive of underlying pneumonia. He is less short of breath compared to yesterday. Still on antibiotics. Still a brokerage and steroids. The plan is to repeat the chest x-ray in a.m. to assess for any interval improvement or worsening. Bronchoscopy will be needed if no improvement in the findings. Objective - Vital Signs Vital signs: Vital Signs Temp 98.7 F 10/15/16 08:00 Pulse 71 10/15/16 12:00 Resp 17 10/15/16 12:00 BP 186/88 10/15/16 12:00 Pulse Ox 98 10/15/16 12:00 Intake & Output 10/14/16 10/15/16 10/15/16 18:59 06:59 18:59 Intake Total 654 800 180 Output Total 900 200 Balance -246 600 180 Weight 115 kg Intake: IV 600 Sodium Chloride 0.9% 1, 600 000 ml @ 50 mls/hr IV . Q20H [facility] Rx#:[id number] Intake, IV Titration 200 Amount Sodium Chloride 0.9% 1, 200 000 ml @ 50 mls/hr IV . Q20H [facility] Rx#:[id number] Oral 654 180 Output: Urine 900 200 Other: Voiding Method Urinal # Voids 1 - Exam Head exam was generally normal. There was no scleral icterus or corneal arcus. Mucous membranes were moist. Neck is short and supple and there is significant crowding of the posterior pharynx. Lung sounds are diminished bilaterally along with some scattered expiratory wheezes throughout the lung guzman.Cardiac exam revealed the PMI to be normally situated and sized. The rhythm was regular and no extrasystoles were noted during several minutes of auscultation. The first and second heart sounds were normal and physiologic splitting of the second heart sound was noted. There were no murmurs, rubs, clicks, or gallops.Abdominal exam revealed normal bowel sounds. The abdomen was soft, non- tender, and without masses, organomegaly, or appreciable enlargement of the abdominal aorta. Extremities show trace edema and there is no cyanosis or clubbing at this point. - Labs CBC & Chem 7: 10/15/16 05:45 10/15/16 05:45 Labs: Abnormal Lab Results - Last 24 Hours (Table) 10/14/16 10/14/16 10/15/16 Range/Units 05:27 05:27 05:45 RBC 4.03 L (4.30-5.90) m/uL Hgb 12.5 L (13.0-17.5) gm/dL Hct 38.6 L (39.0-53.0) % Lymphocytes # 0.6 L (1.0-4.8) k/uL Sodium (137-145) mmol/L Creatine Kinase 562 H (55-170) U/L Troponin I 0.045 H* (0.000-0.034) ng/mL 10/15/16 Range/Units 05:45 RBC (4.30-5.90) m/uL Hgb (13.0-17.5) gm/dL Hct (39.0-53.0) % Lymphocytes # (1.0-4.8) k/uL Sodium 133 L (137-145) mmol/L Creatine Kinase (55-170) U/L Troponin I (0.000-0.034) ng/mL Assessment and Plan Plan: Impression 1 right perihilar pneumonia extending to the right mid/right lower lung area. CAT scan of the chest was reviewed and there is an appearance of a consolidating masslike lesion within the right hilar area, however upon careful review and based on the patient's clinical manifestations and symptoms, I favor pneumonia over malignancy. I also noted a tiny right hilar lymph node that needs to be monitored. The patient is currently on a combination of Levaquin and clindamycin. 2 right hilar lymphadenopathy measuring 1.8 cm in size along with some small mediastinal lymph nodes 3 COPD 4 nicotine addiction/smoking 5 hypertension 6 CHF 7 nonspecific troponin leak Plan Continue the bronchodilators and steroids and antibiotics for now. Repeat the CXR in AM. I agree on the current antibiotic coverage. The patient will need a bronchoscopy if the right lung findings remain unchanged. Otherwise, feeling of this pulmonary infiltrates with antibiotics with suggest and support a diagnosis of a pneumonia. We'll continue following up this patient closely. Smoking cessation counseling was done. We'll continue to follow. The final decision on the bronch will be done tomorrow based on the CXR findings. The patient was agreeable.
[2016-10-15 12:28] LABS: Cholesterol 132 mg/dL (<200); HDL Cholesterol 48 mg/dL (40-60); Triglycerides 50 mg/dL (<150)
--- NOTE | 2016-10-15 13:04 | P.PN ---
Subjective Patient is doing well today. He is up in the chair. He denies shortness of breath. Objective - Vital Signs Vital signs: Vital Signs Temp 98.7 F 10/15/16 08:00 Pulse 71 10/15/16 12:00 Resp 17 10/15/16 12:00 BP 186/88 10/15/16 12:00 Pulse Ox 98 10/15/16 12:00 Intake & Output 10/14/16 10/15/16 10/15/16 18:59 06:59 18:59 Intake Total 654 800 180 Output Total 900 200 Balance -246 600 180 Weight 115 kg Intake: IV 600 Sodium Chloride 0.9% 1, 600 000 ml @ 50 mls/hr IV . Q20H [facility] Rx#:[id number] Intake, IV Titration 200 Amount Sodium Chloride 0.9% 1, 200 000 ml @ 50 mls/hr IV . Q20H [facility] Rx#:[id number] Oral 654 180 Output: Urine 900 200 Other: Voiding Method Urinal # Voids 1 - Exam General: The patient is awake and alert, in no distress Eye: there is normal conjunctiva bilaterally. Neck: The neck is supple, there is no JVD. Cardiovascular: Normal S1-S2, no S3-S4, no murmurs. Respiratory: Lungs clear to auscultation bilaterally Gastrointestinal: Abdomen is soft, nontender Musculoskeletal: There is no pedal edema. Neurological:. Speech is normal. Skin: Skin is warm and dry - Labs CBC & Chem 7: 10/15/16 05:45 10/15/16 05:45 Labs: Abnormal Lab Results - Last 24 Hours (Table) 10/14/16 10/14/16 10/15/16 Range/Units 05:27 05:27 05:45 RBC 4.03 L (4.30-5.90) m/uL Hgb 12.5 L (13.0-17.5) gm/dL Hct 38.6 L (39.0-53.0) % Lymphocytes # 0.6 L (1.0-4.8) k/uL Sodium (137-145) mmol/L Creatine Kinase 562 H (55-170) U/L Troponin I 0.045 H* (0.000-0.034) ng/mL 10/15/16 Range/Units 05:45 RBC (4.30-5.90) m/uL Hgb (13.0-17.5) gm/dL Hct (39.0-53.0) % Lymphocytes # (1.0-4.8) k/uL Sodium 133 L (137-145) mmol/L Creatine Kinase (55-170) U/L Troponin I (0.000-0.034) ng/mL Assessment and Plan Plan: 1. Right middle lobe pneumonia: Possibly aspiration with history of heavy alcohol use 2. Right perihilar masslike density noted on computed tomography scan of the chest with right hilar adenopathy: Maybe secondary to underlying pneumonia. Pulmonology following. Repeat x-ray ordered for a.m. May require bronchoscopy for further evaluation. 3. Essential hypertension: Blood pressure not well controlled. Regimen has been adjusted. 4. Tobacco abuse: counseled to quit during this admission 5. Heavy alcohol use: Counseled extensively to cut down 6. Hyponatremia secondary to heavy beer drinking at home 7. Fever of 101.8 on presentation secondary to underlying pneumonia. Blood cultures negative to date. We will continue antibiotic. 8. Troponin elevation: Most likely not thrombotic troponin leak. Patient denies chest pain. Cardiology consult. Echocardiogram showed preserved ejection fraction with no significant valvular abnormalities. We will continue current regimen otherwise. Broad-spectrum antibiotic. Repeat x-ray in a.m. Repeat lab work in the morning.
[2016-10-15] MEDS: LEVOFLOXACIN 500MG-D5W PMX 500 MG in DEXTROSE/WATER 1 100ML.BAG IVPB SCH (18:05)
[2016-10-15] MEDS ORDERED: LEVOFLOXACIN 750 MG TAB PO SCH (19:00)
[2016-10-15] MEDS: amLODIPine 10 MG TAB PO SCH (20:06)
[2016-10-15] MEDS: diphenhydrAMINE 25 MG CAP PO PRN (22:28)
[2016-10-16 06:12] LABS: Basophils % (A) 0 %; CH 32.5; Eosinophils % (A) 1 %; HCT 38.5 % (39.0-53.0); HGB 12.8 gm/dL (13.0-17.5); Luc # (Auto) 0.21; Luc % (Auto) 4; Lymphocytes # (A) 0.7 k/uL (1.0-4.8); Lymphocytes % (A) 12 %; MCH 31.8 pg (25.0-35.0); MCHC 33.2 g/dL (31.0-37.0); MCV 95.9 fL (80.0-100.0); Monocytes # (A) 0.6 k/uL (0-1.0); Monocytes % (A) 11 %; Neutrophils # (A) 4.3 k/uL (1.3-7.7); Neutrophils % (A) 73 %; RBC 4.01 m/uL (4.30-5.90); RDW 13.2 % (11.5-15.5); WBC 5.9 k/uL (3.8-10.6)
[2016-10-16 06:22] LABS: ALT 43 U/L (21-72); AST 34 U/L (17-59); Alkaline Phosphatase 87 U/L (38-126); Anion Gap 13 mmol/L; Blood Urea Nitrogen 21 mg/dL (9-20); Calcium 8.9 mg/dL (8.4-10.2); Carbon Dioxide 23 mmol/L (22-30); Chloride 98 mmol/L (98-107); Glucose 92 mg/dL (74-99); Magnesium 1.6 mg/dL (1.6-2.3); Non-African American GFR(MDRD) 50 (>60 ml/min/1.73 sqM); Potassium 3.9 mmol/L (3.5-5.1); Sodium 134 mmol/L (137-145); Total Bilirubin 0.5 mg/dL (0.2-1.3); Total Protein 6.3 g/dL (6.3-8.2)
--- NOTE | 2016-10-16 07:10 | XR ---
EXAMINATION TYPE: XR chest 2V DATE OF EXAM: 10/16/2016 6:38 AM COMPARISON: October 14, 2016 HISTORY: Shortness of breath TECHNIQUE: Frontal and lateral views of the chest are obtained. FINDINGS: Scattered senescent parenchymal changes noted. Hyperinflation compatible with COPD. Right perihilar infiltrate is noted. No significant interval change appreciated. Heart size is stable. Mediastinal structures are stable and grossly unremarkable. No evidence for hilar prominence. Degenerative changes dorsal spine. IMPRESSION: 1. Right perihilar infiltrate is noted. No significant interval change appreciated.
[2016-10-16] MEDS: ENOXAPARIN 40 MG/0.4 ML SYRINGE SQ SCH (07:42)
[2016-10-16] MEDS: FAMOTIDINE 20 MG TAB PO SCH (07:42)
[2016-10-16] MEDS: FOLIC ACID 1 MG TAB PO SCH (07:42)
[2016-10-16] MEDS: NICOTINE 21MG/24HR PATCH TRANSDERM SCH (07:42)
[2016-10-16] MEDS: LOSARTAN 50 MG TAB PO SCH (07:43)
[2016-10-16] MEDS: THIAMINE 100 MG TAB PO SCH (07:43)
[2016-10-16] MEDS: guaiFENesin 600 MG TABLET.ER PO SCH ×2 (07:43→20:59)
[2016-10-16] MEDS: ASPIRIN 81 MG CHEW PO SCH (07:43)
[2016-10-16] MEDS: MULTIVITAMINS, THERA 1 EACH TAB PO SCH (07:43)
[2016-10-16] MEDS: CLINDAMYCIN 600 MG in DEXTROSE 5% IN WATER 50 ML IVPB SCH ×6 (07:48→22:55)
[2016-10-16] MEDS: cloNIDine HCL 0.1 MG TAB PO SCH ×3 (08:32→21:09)
[2016-10-16] MEDS: IPRATROPIUM-ALBUTEROL 3 ML NEB INHALATION SCH ×4 (08:58→20:07)
[2016-10-16] MEDS ORDERED: Magnesium Replacement Protocol 1 EACH MISC MISCELLANE PRN (10:48)
--- NOTE | 2016-10-16 11:21 | PN ---
A 65-year-old gentleman is admitted to hospital with postobstructive pneumonia and mild troponin elevation. This morning he is feeling better, denies chest pain and breathing has remained stable. I reviewed ( ). On exam, vital signs are stable. Chest exam reveals occasional rhonchi bilaterally. Heart exam reveals first and second heart sounds. No gallop. Exam of the extremities did not reveal any edema. Labs show a hemoglobin of 12.8, platelet count is 260, potassium is 3.9. Creatinine is 1.4. ASSESSMENT: 1. Postobstructive pneumonia. 2. Hypertension. 3. Mild troponin elevation. PLAN: Patient will continue with his current medical therapy and Pulmonary is evaluating him for possible mass. Blood pressures are well-controlled.
[2016-10-16] MEDS: MAGNESIUM SULFATE-D5W PMX 1 GM in DEXTROSE/WATER 1 100ML.BAG IVPB SCH ×2 (12:08→13:30)
[2016-10-16] MEDS: SODIUM CHLORIDE 0.9% 1,000 ML IV SCH (12:11)
--- NOTE | 2016-10-16 12:54 | P.PN ---
Subjective 65-year-old male patient, a chronic smoker, a primary of Dr. Mix, who presented to the hospital because of 2 months worth of respiratory difficulties. The patient was reporting increased cough chest congestion wheezing and some limited sputum production. It seems that his condition has gotten worse over the past week or so on for that reason he came into the hospital for further advice. His cough was nonproductive at this point. No significant sputum production. No hemoptysis. No pleurisy. Chest x-ray showed a dense consolidation the right perihilar area extending to the right mid and a right lower lobe. For that reason the patient was admitted to the hospital. The patient was started on IV antibiotics steroids and bronchodilators and currently is on empiric antibiotic coverage for Levaquin regarding a pneumonia. He did have a spike of temperature of 11.8 at time of admission. Subsequent chest x-ray from today showed persistent infiltration in the right perihilar area and this led to a CAT scan of the chest that showed a consolidating mass like infiltrate in the right perihilar area. This area that was masslike measured 5.6 x 4.4 x 3 cm in size and there was a concern of an underlying malignancy. For that reason a primary consultation was requested. The mediastinum showed subcentimeter lymph nodes that are nonpathologic. Her was right hilar adenopathy measuring 1.8 cm in size. The patient is not known to have any cardiac disease. No previous bouts of pneumonias. No swelling lower extremities. No exposure to TB. No travel history. On 10/15/2016 the patient is being seen in follow-up. With the treating this patient with antibiotics. There is a suspicion for malignancy although the CAT scan is more suggestive of underlying pneumonia. He is less short of breath compared to yesterday. Still on antibiotics. Still a brokerage and steroids. The plan is to repeat the chest x-ray in a.m. to assess for any interval improvement or worsening. Bronchoscopy will be needed if no improvement in the findings. On 10/16/2016 the patient is being seen in follow-up. Clinically improved. Chest x-ray however showing stable right lung pulmonary infiltrate, perihilar. The patient is on antibiotics. He is on a combination of Levaquin and clindamycin. He will ultimately need a bronchoscopy if no improvement in his pulmonary infiltration. I would suggest him staying in the hospital for another 24 hours for inpatient treatment. Objective - Vital Signs Vital signs: Vital Signs Temp 98.1 F 10/16/16 07:54 Pulse 68 10/16/16 12:00 Resp 18 10/16/16 12:00 BP 136/78 10/16/16 12:00 Pulse Ox 99 10/16/16 12:00 Intake & Output 10/15/16 10/16/16 10/16/16 18:59 06:59 18:59 Intake Total 420 240 Output Total 500 Balance 420 -260 Weight 115 kg Intake: Oral 420 240 Output: Urine 500 Other: # Voids 1 - Exam Head exam was generally normal. There was no scleral icterus or corneal arcus. Mucous membranes were moist. Neck is short and supple and there is significant crowding of the posterior pharynx. Lung sounds are diminished bilaterally along with some scattered expiratory wheezes throughout the lung guzman.Cardiac exam revealed the PMI to be normally situated and sized. The rhythm was regular and no extrasystoles were noted during several minutes of auscultation. The first and second heart sounds were normal and physiologic splitting of the second heart sound was noted. There were no murmurs, rubs, clicks, or gallops.Abdominal exam revealed normal bowel sounds. The abdomen was soft, non- tender, and without masses, organomegaly, or appreciable enlargement of the abdominal aorta. Extremities show trace edema and there is no cyanosis or clubbing at this point. - Labs CBC & Chem 7: 10/16/16 05:48 10/16/16 05:48 Labs: Abnormal Lab Results - Last 24 Hours (Table) 10/16/16 10/16/16 Range/Units 05:48 05:48 RBC 4.01 L (4.30-5.90) m/uL Hgb 12.8 L (13.0-17.5) gm/dL Hct 38.5 L (39.0-53.0) % Lymphocytes # 0.7 L (1.0-4.8) k/uL Sodium 134 L (137-145) mmol/L BUN 21 H (9-20) mg/dL Creatinine 1.41 H (0.66-1.25) mg/dL Assessment and Plan Plan: Impression 1 right perihilar pneumonia extending to the right mid/right lower lung area. CAT scan of the chest was reviewed and there is an appearance of a consolidating masslike lesion within the right hilar area, however upon careful review and based on the patient's clinical manifestations and symptoms, I favor pneumonia over malignancy. I also noted a tiny right hilar lymph node that needs to be monitored. The patient is currently on a combination of Levaquin and clindamycin. On 10/16/2016, the patient is still on antibiotics. Chest x-ray shows stable right perihilar pulmonary infiltrate and to my judgment this is more consistent with pneumonia versus cancer. Clinically improving. 2 right hilar lymphadenopathy measuring 1.8 cm in size along with some small mediastinal lymph nodes 3 COPD 4 nicotine addiction/smoking 5 hypertension 6 CHF 7 nonspecific troponin leak Plan Continue the bronchodilators and steroids and antibiotics for now. Continue same antibiotic coverage. Inpatient antibiotic therapy with discharged with oral antibiotics within the next 24 hours and bronchoscopy if the chest x-ray findings remain unchanged. Smoking cessation counseling was done.
--- NOTE | 2016-10-16 13:33 | P.PN ---
Subjective Patient is feeling better today. He is eager to go home. Objective - Vital Signs Vital signs: Vital Signs Temp 98.1 F 10/16/16 07:54 Pulse 68 10/16/16 12:00 Resp 18 10/16/16 12:00 BP 136/78 10/16/16 12:00 Pulse Ox 99 10/16/16 12:00 Intake & Output 10/15/16 10/16/16 10/16/16 18:59 06:59 18:59 Intake Total 420 240 240 Output Total 500 Balance 420 -260 240 Weight 115 kg Intake: Oral 420 240 240 Output: Urine 500 Other: # Voids 1 - Exam General: The patient is awake and alert, in no distress Eye: there is normal conjunctiva bilaterally. Neck: The neck is supple, there is no JVD. Cardiovascular: Normal S1-S2, no S3-S4, no murmurs. Respiratory: Lungs clear to auscultation bilaterally Gastrointestinal: Abdomen is soft, nontender Musculoskeletal: There is no pedal edema. Neurological:. Speech is normal. Skin: Skin is warm and dry - Labs CBC & Chem 7: 10/16/16 05:48 10/16/16 05:48 Labs: Abnormal Lab Results - Last 24 Hours (Table) 10/16/16 10/16/16 Range/Units 05:48 05:48 RBC 4.01 L (4.30-5.90) m/uL Hgb 12.8 L (13.0-17.5) gm/dL Hct 38.5 L (39.0-53.0) % Lymphocytes # 0.7 L (1.0-4.8) k/uL Sodium 134 L (137-145) mmol/L BUN 21 H (9-20) mg/dL Creatinine 1.41 H (0.66-1.25) mg/dL Assessment and Plan Plan: 1. Right middle lobe pneumonia: Possibly aspiration with history of heavy alcohol use 2. Right perihilar masslike density noted on computed tomography scan of the chest with right hilar adenopathy: Maybe secondary to underlying pneumonia. Pulmonology following. May require bronchoscopy for further evaluation when finished with 8 days course of antibiotic 3. Essential hypertension: Blood pressure not well controlled. Regimen has been adjusted. Clonidine added 3 times a day 4. Tobacco abuse: counseled to quit during this admission 5. Heavy alcohol use: Counseled extensively to cut down 6. Hyponatremia secondary to heavy beer drinking at home 7. Fever of 101.8 on presentation secondary to underlying pneumonia. Blood cultures negative to date. We will continue IV antibiotic. 8. Troponin elevation: Most likely not thrombotic troponin leak. Patient denies chest pain. Cardiology consult. Echocardiogram showed preserved ejection fraction with no significant valvular abnormalities. 9. Acute kidney injury possibly prerenal. We'll start IV fluid hydration and recheck lab work in the morning Patient was counseled extensively that he is not medically cleared to go home. I advised him to get one more day of IV antibiotic. IV fluid hydration for acute kidney injury with repeat blood work ordered tomorrow. Patient was very close to leave the hospital AMA but eventually decided to stay. Possible discharge home tomorrow.
[2016-10-16] MEDS: LEVOFLOXACIN 500MG-D5W PMX 500 MG in DEXTROSE/WATER 1 100ML.BAG IVPB SCH (17:29)
[2016-10-16] MEDS: amLODIPine 10 MG TAB PO SCH (20:59)
[2016-10-16] MEDS: diphenhydrAMINE 25 MG CAP PO PRN (23:04)
[2016-10-17] MEDS: SODIUM CHLORIDE 0.9% 1,000 ML IV SCH (01:29)
[2016-10-17] MEDS: IPRATROPIUM-ALBUTEROL 3 ML NEB INHALATION SCH ×3 (02:24→13:13)
[2016-10-17 06:07] LABS: Basophils % (A) 0 %; CH 32.3; CHCM 33.9; Eosinophils # (A) 0.1 k/uL (0-0.7); Eosinophils % (A) 1 %; HCT 37.4 % (39.0-53.0); HDW 2.31; HGB 12.3 gm/dL (13.0-17.5); Luc # (Auto) 0.22; Luc % (Auto) 3; Lymphocytes # (A) 0.9 k/uL (1.0-4.8); Lymphocytes % (A) 14 %; MCH 31.4 pg (25.0-35.0); MCHC 32.8 g/dL (31.0-37.0); MCV 95.6 fL (80.0-100.0); Mean Platelet Volume 6.2; Monocytes # (A) 0.7 k/uL (0-1.0); Monocytes % (A) 10 %; Neutrophils % (A) 72 %; RBC 3.91 m/uL (4.30-5.90); RDW 13.1 % (11.5-15.5); WBC 6.9 k/uL (3.8-10.6); WBC (Perox) 7.31
[2016-10-17 06:19] LABS: ALT 44 U/L (21-72); AST 32 U/L (17-59); Alkaline Phosphatase 85 U/L (38-126); Anion Gap 10 mmol/L; Blood Urea Nitrogen 18 mg/dL (9-20); Calcium 8.5 mg/dL (8.4-10.2); Carbon Dioxide 24 mmol/L (22-30); Chloride 99 mmol/L (98-107); Glucose 95 mg/dL (74-99); Magnesium 1.8 mg/dL (1.6-2.3); Non-African American GFR(MDRD) >60 (>60 ml/min/1.73 sqM); Potassium 3.9 mmol/L (3.5-5.1); Sodium 133 mmol/L (137-145); Total Bilirubin 0.5 mg/dL (0.2-1.3); Total Protein 5.9 g/dL (6.3-8.2)
[2016-10-17 08:08] VITALS: TEMP 96.4
[2016-10-17] MEDS: CLINDAMYCIN 600 MG in DEXTROSE 5% IN WATER 50 ML IVPB SCH ×2 (08:10)
[2016-10-17] MEDS: NICOTINE 21MG/24HR PATCH TRANSDERM SCH (08:10)
[2016-10-17] MEDS: ENOXAPARIN 40 MG/0.4 ML SYRINGE SQ SCH (08:10)
[2016-10-17] MEDS: ASPIRIN 81 MG CHEW PO SCH (08:11)
[2016-10-17] MEDS: FAMOTIDINE 20 MG TAB PO SCH (08:11)
[2016-10-17] MEDS: guaiFENesin 600 MG TABLET.ER PO SCH (08:11)
[2016-10-17] MEDS: cloNIDine HCL 0.1 MG TAB PO SCH (08:11)
[2016-10-17] MEDS: LOSARTAN 50 MG TAB PO SCH (08:12)
--- NOTE | 2016-10-17 08:21 | XR ---
EXAMINATION TYPE: XR chest 2V DATE OF EXAM: 10/17/2016 6:24 AM COMPARISON: 10/16/2012 HISTORY: Abnormal x-ray FINDINGS: Hyperinflation suggests COPD and biapical pleural thickening stable. Prominence of the right hilum wi th perihilar area of consolidation is stable. IMPRESSION: 1. Right perihilar infiltrate is stable. Underlying neoplasm not excluded.
[2016-10-17] MEDS: FOLIC ACID 1 MG TAB PO SCH (11:07)
[2016-10-17] MEDS: THIAMINE 100 MG TAB PO SCH (11:07)
[2016-10-17] MEDS: MULTIVITAMINS, THERA 1 EACH TAB PO SCH (11:07)
--- NOTE | 2016-10-17 13:26 | PN ---
65-year-old gentleman who was admitted to the hospital with shortness of breath and postobstructive pneumonia. I was consulted due to mild troponin elevation. He is feeling better. On an echocardiogram, he has normal LV function. On exam, comfortable at rest. Vital signs are stable. There is no jugular venous distention. Chest exam reveals good air entry bilaterally. Heart exam reveals first and second heart sounds. No gallop. Exam of the extremities did not reveal edema. Peripheral pulses are felt. ASSESSMENT: 1. Postobstructive pneumonia. 2. Mild troponin elevation. 3. Hypertension. PLAN: Patient will continue with current medical therapy, when the lung issues resolve we may consider doing a stress test on him.
--- NOTE | 2016-10-17 13:34 | P.DS ---
Providers Date of admission: 10/13/16 18:54 Expected date of discharge: 10/17/16 Attending physician: Gerry Meeks Consults: 10/13/16 19:00 Consult Physician Stat Consulting Provider: Chau Varela Consult Reason/Comments: pna Do you want consulting provider notified?: Yes 10/14/16 15:23 Consult Physician Routine Consulting Provider: Carroll Saenz Consult Reason/Comments: shortness of breath Do you want consulting provider notified?: Yes Primary care physician: Nichelle Smallwood [facility] Course: This is a 65-year-old gentleman who presented to the hospital initially with progressive shortness of breath and cough. Patient was evaluated in the emergency room and was subsequently admitted to the hospital. He was seen and evaluated by pulmonology. Below is a list of his medical problems addressed during this hospitalization. Patient will be discharged home in a stable condition. He will follow-up with his primary care physician within the next 2- 3 days. 1. Right middle lobe pneumonia: Possibly aspiration with history of heavy alcohol use 2. Right perihilar masslike density noted on computed tomography scan of the chest with right hilar adenopathy: Maybe secondary to underlying pneumonia. Will require bronchoscopy for further evaluation when finished with 8 days course of antibiotic 3. Essential hypertension: Blood pressure not well controlled. Regimen has been adjusted. Clonidine added 3 times a day 4. Tobacco abuse: counseled to quit during this admission 5. Heavy alcohol use: Counseled extensively to cut down 6. Hyponatremia secondary to heavy beer drinking at home 7. Fever of 101.8 on presentation secondary to underlying pneumonia. Blood cultures negative. We will finish antibiotic course at home with Augmentin 8. Troponin elevation: Most likely not thrombotic troponin leak. Patient denies chest pain. Cardiology consult. Echocardiogram showed preserved ejection fraction with no significant valvular abnormalities. 9. Acute kidney injury possibly prerenal. Resolved with IV fluid hydration. Kidney function back to baseline Patient Condition at Discharge: Serious Plan - Discharge Summary New Discharge Prescriptions: Amoxicillin/Potassium Clav [Augmentin 875-125 Tablet] 1 tab PO Q12HR #14 tab Folic Acid 1 mg PO DAILY@1200 #30 tab Nicotine 21Mg/24Hr Patch [Habitrol] 1 patch TRANSDERM DAILY #30 patch Thiamine [Vitamin B-1] 100 mg PO 1200 #30 tab cloNIDine HCL [Catapres] 0.1 mg PO TID #90 tab Discharge Medication List Aspirin [Adult Low Dose Aspirin EC] 81 mg PO DAILY 12/10/15 [History] Losartan Potassium [Cozaar] 100 mg PO DAILY 10/13/16 [History] amLODIPine BESYLATE [Norvasc] 10 mg PO HS 10/13/16 [History] Amoxicillin/Potassium Clav [Augmentin 875-125 Tablet] 1 tab PO Q12HR #14 tab 02/25 [Rx] Folic Acid 1 mg PO DAILY@1200 #30 tab 10/17/16 [Rx] Nicotine 21Mg/24Hr Patch [Habitrol] 1 patch TRANSDERM DAILY #30 patch 10/17/16 [ Rx] Thiamine [Vitamin B-1] 100 mg PO 1200 #30 tab 10/17/16 [Rx] cloNIDine HCL [Catapres] 0.1 mg PO TID #90 tab 10/17/16 [Rx] Follow up Appointment(s)/Referral(s): Nichelle Smallwood MD [Primary Care Provider] - 10/19/16 1:00 pm Hubert Eid MD [STAFF PHYSICIAN] - 10/21/16 1:30 pm Patient Instructions/Handouts: Viral Pneumonia (DC) Discharge Disposition: HOME SELF-CARE
[2016-10-17 13:40] VITALS: BP 134/73; PULSE 64; RESP 18
--- NOTE | 2016-10-17 14:01 | P.PN ---
Subjective Principal diagnosis: Acute right lower lobe pneumonia, and possible lung mass 65-year-old male patient, a chronic smoker, a primary of Dr. Mix, who presented to the hospital because of 2 months worth of respiratory difficulties. The patient was reporting increased cough chest congestion wheezing and some limited sputum production. It seems that his condition has gotten worse over the past week or so on for that reason he came into the hospital for further advice. His cough was nonproductive at this point. No significant sputum production. No hemoptysis. No pleurisy. Chest x-ray showed a dense consolidation the right perihilar area extending to the right mid and a right lower lobe. For that reason the patient was admitted to the hospital. The patient was started on IV antibiotics steroids and bronchodilators and currently is on empiric antibiotic coverage for Levaquin regarding a pneumonia. He did have a spike of temperature of 11.8 at time of admission. Subsequent chest x-ray from today showed persistent infiltration in the right perihilar area and this led to a CAT scan of the chest that showed a consolidating mass like infiltrate in the right perihilar area. This area that was masslike measured 5.6 x 4.4 x 3 cm in size and there was a concern of an underlying malignancy. For that reason a primary consultation was requested. The mediastinum showed subcentimeter lymph nodes that are nonpathologic. Her was right hilar adenopathy measuring 1.8 cm in size. The patient is not known to have any cardiac disease. No previous bouts of pneumonias. No swelling lower extremities. No exposure to TB. No travel history. On 10/15/2016 the patient is being seen in follow-up. With the treating this patient with antibiotics. There is a suspicion for malignancy although the CAT scan is more suggestive of underlying pneumonia. He is less short of breath compared to yesterday. Still on antibiotics. Still a brokerage and steroids. The plan is to repeat the chest x-ray in a.m. to assess for any interval improvement or worsening. Bronchoscopy will be needed if no improvement in the findings. On 10/16/2016 the patient is being seen in follow-up. Clinically improved. Chest x-ray however showing stable right lung pulmonary infiltrate, perihilar. The patient is on antibiotics. He is on a combination of Levaquin and clindamycin. He will ultimately need a bronchoscopy if no improvement in his pulmonary infiltration. I would suggest him staying in the hospital for another 24 hours for inpatient treatment. Reevaluated on 10/17/2016, patient is feeling better, and he is insisting on being discharged home today. I discussed with him the option of bronchoscopy and evaluating the right perihilar abnormality, patient refuses to have it done while inpatient, but he is very willing to follow-up with Dr. Eid and possibly consider that to be done on outpatient basis if his chest x-ray does not show significant improvement. Hence I discussed his condition with the admitting physician, patient could be discharged home today as long as he follows up within a short period of time with Dr. Eid on outpatient basis. Patient denies any cough no wheezing no shortness of breath today. Objective - Vital Signs Vital signs: Vital Signs Temp 96.4 F L 10/17/16 08:00 Pulse 76 10/17/16 13:22 Resp 18 10/17/16 12:00 BP 134/73 10/17/16 12:00 Pulse Ox 95 10/17/16 12:00 Intake & Output 10/16/16 10/17/16 10/17/16 18:59 06:59 18:59 Intake Total 340 700 480 Output Total 325 Balance 340 375 480 Weight 115.5 kg Intake: Intake, IV Titration 500 Amount Clindamycin 600 mg In 50 Dextrose 5% in Water 50 ml @ 100 mls/hr IVPB Q8HR [facility] Rx#:[id number] Sodium Chloride 0.9% 1, 450 000 ml @ 75 mls/hr IV . [id number] [facility] Rx#:[id number] Oral 340 200 480 Output: Urine 325 Other: Voiding Method Urinal # Voids 1 1 3 - Exam Physical Exam: Revealed a 65-year-old in no distress HEENT:[Neck is supple.] [No neck masses.] [No thyromegaly.] [No JVD.] Chest: [Clear throughout, no crackles, no rhonchi, no wheezes.] Cardiac Exam: [Normal S1 and S2, no S3 gallop, no murmur.] Abdomen: [Soft, nontender, no megaly, no rebound, no guarding, normal bowel sounds.] Extremities: [No clubbing, no edema, no cyanosis.] Neurological Exam: [No focal neurologic deficit.] - Labs CBC & Chem 7: 10/17/16 05:18 10/17/16 05:18 Labs: Abnormal Lab Results - Last 24 Hours (Table) 10/17/16 10/17/16 Range/Units 05:18 05:18 RBC 3.91 L (4.30-5.90) m/uL Hgb 12.3 L (13.0-17.5) gm/dL Hct 37.4 L (39.0-53.0) % Lymphocytes # 0.9 L (1.0-4.8) k/uL Sodium 133 L (137-145) mmol/L Total Protein 5.9 L (6.3-8.2) g/dL Albumin 3.3 L (3.5-5.0) g/dL Assessment and Plan Plan: 1 right perihilar pneumonia extending to the right mid/right lower lung area. CAT scan of the chest was reviewed and there is an appearance of a consolidating masslike lesion within the right hilar area, however upon careful review and based on the patient's clinical manifestations and symptoms, I favor pneumonia over malignancy. I also noted a tiny right hilar lymph node that needs to be monitored. The patient is currently on a combination of Levaquin and clindamycin. On 10/16/2016, the patient is still on antibiotics. Chest x-ray shows stable right perihilar pulmonary infiltrate and to my judgment this is more consistent with pneumonia versus cancer. Clinically improving. On 10/17/2016, patient wants to go home, hence I emphasized to the patient the importance of having a close follow-up on his abnormal x-ray and CT of the chest , and it that area in the right perihilar region does not improve, he will need to be bronchoscoped. He promised to follow-up with Dr. Eid in the next few days. 2 right hilar lymphadenopathy measuring 1.8 cm in size along with some small mediastinal lymph nodes 3 COPD 4 nicotine addiction/smoking 5 hypertension 6 CHF 7 nonspecific troponin leak Recommendation: Continue present oral antibiotics, discharge home today, follow- up with Dr. Eid in few days. Counseled again regarding smoking cessation. Time with Patient: Less than 30
== END 2016-10-17 14:13 | disposition home or self-care (01) | DRG 178 ==
LOC: EC 17:45 → 6SEL 18:54
PROVIDERS: ADMIT Internal Medicine; ATTEND Internal Medicine
DX: J69.0 Pneumonitis due to inhalation of food and vomit (principal); E87.1 Hypo-osmolality and hyponatremia; N17.9 Acute kidney failure, unspecified; J45.901 Unspecified asthma with (acute) exacerbation; I11.0 Hypertensive heart disease with heart failure; I50.9 Heart failure, unspecified; J44.1 Chronic obstructive pulmonary disease with (acute) exacerbation; F10.20 Alcohol dependence, uncomplicated; I25.2 Old myocardial infarction; R59.0 Localized enlarged lymph nodes; F17.200 Nicotine dependence, unspecified, uncomplicated; Z79.82 Long term (current) use of aspirin; Z79.899 Other long term (current) drug therapy
CPT/HCPCS: 36415; 71010; 71020; 71260; 80053; 80061; 81003; 82550; 82553; 83605; 83735; 83880; 84484; 85025; 85610; 85730; 87040; 87086; 87502; 93005; 93306; 94640; 94644; 94760; 96361; 96365; 99291

== ENCOUNTER 2017-02-28 15:14 | Inpatient (IN) | payer MEDICARE ==
[2017-02-28] MEDS ORDERED: PANTOPRAZOLE 40 MG/10 ML VIAL IVP STA (15:48)
[2017-02-28] MEDS ORDERED: IPRATROPIUM-ALBUTEROL 3 ML NEB INHALATION STA (15:48)
[2017-02-28] MEDS ORDERED: FUROSEMIDE 10 MG/ML 4 ML VIAL IV STA (15:48)
--- NOTE | 2017-02-28 15:53 | ED ---
General Adult HPI - General Chief complaint: Shortness of Breath Stated complaint: Dyspnea Time Seen by Provider: 02/28/17 15:33 Source: patient, family, RN notes reviewed Mode of arrival: ambulatory Limitations: no limitations - History of Present Illness Initial comments: Patient is a pleasant 66-year-old male presenting to the emergency department complaining of dyspnea. Symptoms have been progressive over the past few days. Patient has been having nosebleeds and dark stool. Patient feels fatigued and somewhat weak all over. No chest pain. No fever. Patient has had dyspnea is similar with both COPD and CHF. Patient is also having some leg edema. Right back rash has been present for the past week. - Related Data Home Medications Medication Instructions Recorded Confirmed Aspirin [Adult Low Dose Aspirin EC] 81 mg PO HS 12/10/15 02/28/17 Furosemide [Lasix] 40 mg PO DAILY 02/28/17 02/28/17 Ipratropium-Albuterol Nebulize 3 ml INHALATION RT-QID PRN 02/28/17 02/28/17 [Duoneb 0.5 mg-3 mg/3 ml Soln] LORazepam [Ativan] 0.5 mg PO DAILY PRN 02/28/17 02/28/17 Losartan Potassium [Cozaar] 100 mg PO HS 02/28/17 02/28/17 Potassium Chloride ER [K-Dur 10] 10 meq PO DAILY 02/28/17 02/28/17 amLODIPine [Norvasc] 10 mg PO DAILY 02/28/17 02/28/17 Previous Rx's Medication Instructions Recorded cloNIDine HCL [Catapres] 0.1 mg PO TID #90 tab 10/17/16 Allergies Allergy/AdvReac Type Severity Reaction Status Date / Time No Known Allergies Allergy Verified 02/28/17 15:56 Review of Systems ROS Statement: Those systems with pertinent positive or pertinent negative responses have been documented in the HPI. ROS Other: All systems not noted in ROS Statement are negative. Constitutional: Denies: fever Eyes: Denies: eye pain ENT: Denies: ear pain Respiratory: Reports: cough, dyspnea Cardiovascular: Denies: chest pain Endocrine: Reports: fatigue Gastrointestinal: Denies: abdominal pain Musculoskeletal: Denies: back pain Skin: Reports: rash Neurological: Denies: headache Past Medical History Past Medical History: Heart Failure, Hypertension Additional Past Medical History / Comment(s): Hypertension, congestion heart failure History of Any Multi-Drug Resistant Organisms: None Reported Past Surgical History: No Surgical Hx Reported Additional Past Surgical History / Comment(s): jaw surgery Past Anesthesia/Blood Transfusion Reactions: No Reported Reaction Past Psychological History: No Psychological Hx Reported Smoking Status: Current every day smoker Past Alcohol Use History: Daily Past Drug Use History: None Reported General Exam Limitations: no limitations General appearance: alert, in no apparent distress Head exam: Present: atraumatic, normocephalic Eye exam: Present: normal appearance, PERRL ENT exam: Present: normal oropharynx Neck exam: Present: normal inspection Respiratory exam: Present: decreased breath sounds Cardiovascular Exam: Present: regular rate, normal rhythm GI/Abdominal exam: Present: soft. Absent: tenderness Rectal exam: Present: black stool Extremities exam: Present: pedal edema. Absent: calf tenderness Neurological exam: Present: alert Psychiatric exam: Present: normal affect, normal mood Skin exam: Present: rash (Patchy Right thoracic back with erythematous rash in the distribution of the thoracic nerve consistent with shingles) Course Vital Signs 02/28/17 02/28/17 02/28/17 15:22 16:16 16:37 Temperature 97.5 F L Pulse Rate 74 76 Respiratory 20 22 Rate Blood Pressure 150/68 O2 Sat by Pulse 93 L Oximetry 02/28/17 02/28/17 16:49 18:25 Temperature Pulse Rate 78 81 Respiratory 16 Rate Blood Pressure 160/76 O2 Sat by Pulse Oximetry EKG Findings - EKG Comments: EKG Findings:: Normal sinus rhythm at 87. HI 194. QRS 134. QT 404. QTC 46. Normal axis. Right bundle branch block. No acute ST change. Medical Decision Making - Medical Decision Making Patient reevaluated and resting comfortably in bed. Patient has known lung mass and has refused evaluation on it. Patient and family updated on results and plan. Case discussed in detail with practitioner René, who will admit for Dr. Robert, covering for Dr. degroot, who admits for Dr. Sung. - Lab Data Result diagrams: 02/28/17 14:10 02/28/17 14:10 Lab Results 02/28/17 02/28/17 02/28/17 Range/Units 14:10 14:10 14:10 WBC 9.8 (3.8-10.6) k/uL RBC 3.42 L (4.30-5.90) m/uL Hgb 9.9 L (13.0-17.5) gm/dL Hct 30.9 L (39.0-53.0) % MCV 90.4 (80.0-100.0) fL MCH 29.0 (25.0-35.0) pg MCHC 32.1 (31.0-37.0) g/dL RDW 15.3 (11.5-15.5) % Plt Count 348 (150-450) k/uL Neutrophils % 75 % Lymphocytes % 12 % Monocytes % 8 % Eosinophils % 3 % Basophils % 0 % Neutrophils # 7.3 (1.3-7.7) k/uL Lymphocytes # 1.1 (1.0-4.8) k/uL Monocytes # 0.8 (0-1.0) k/uL Eosinophils # 0.3 (0-0.7) k/uL Basophils # 0.0 (0-0.2) k/uL PT (9.0-12.0) sec INR (<1.1) APTT (22.0-30.0) sec Sodium 134 L (137-145) mmol/L Potassium 4.6 (3.5-5.1) mmol/L Chloride 99 (98-107) mmol/L Carbon Dioxide 23 (22-30) mmol/L Anion Gap 12 mmol/L BUN 17 (9-20) mg/dL Creatinine 1.00 (0.66-1.25) mg/dL Est GFR (MDRD) Af Amer >60 (>60 ml/min/1.73 sqM) Est GFR (MDRD) Non-Af >60 (>60 ml/min/1.73 sqM) Glucose 91 (74-99) mg/dL Calcium 9.6 (8.4-10.2) mg/dL Total Bilirubin 0.6 (0.2-1.3) mg/dL AST 17 (17-59) U/L ALT 30 (21-72) U/L Alkaline Phosphatase 145 H (38-126) U/L Total Creatine Kinase 62 (55-170) U/L CK-MB (CK-2) 1.5 (0.0-2.4) ng/mL CK-MB (CK-2) Rel Index 2.4 Troponin I <0.012 (0.000-0.034) ng/mL NT-Pro-B Natriuret Pep pg/mL Total Protein 6.5 (6.3-8.2) g/dL Albumin 3.6 (3.5-5.0) g/dL Stool Occult Blood (Negative) 02/28/17 02/28/17 02/28/17 Range/Units 14:10 14:10 14:10 WBC (3.8-10.6) k/uL RBC (4.30-5.90) m/uL Hgb (13.0-17.5) gm/dL Hct (39.0-53.0) % MCV (80.0-100.0) fL MCH (25.0-35.0) pg MCHC (31.0-37.0) g/dL RDW (11.5-15.5) % Plt Count (150-450) k/uL Neutrophils % % Lymphocytes % % Monocytes % % Eosinophils % % Basophils % % Neutrophils # (1.3-7.7) k/uL Lymphocytes # (1.0-4.8) k/uL Monocytes # (0-1.0) k/uL Eosinophils # (0-0.7) k/uL Basophils # (0-0.2) k/uL PT 10.8 (9.0-12.0) sec INR 1.1 (<1.1) APTT 26.3 (22.0-30.0) sec Sodium (137-145) mmol/L Potassium (3.5-5.1) mmol/L Chloride (98-107) mmol/L Carbon Dioxide (22-30) mmol/L Anion Gap mmol/L BUN (9-20) mg/dL Creatinine (0.66-1.25) mg/dL Est GFR (MDRD) Af Amer (>60 ml/min/1.73 sqM) Est GFR (MDRD) Non-Af (>60 ml/min/1.73 sqM) Glucose (74-99) mg/dL Calcium (8.4-10.2) mg/dL Total Bilirubin (0.2-1.3) mg/dL AST (17-59) U/L ALT (21-72) U/L Alkaline Phosphatase (38-126) U/L Total Creatine Kinase (55-170) U/L CK-MB (CK-2) (0.0-2.4) ng/mL CK-MB (CK-2) Rel Index Troponin I (0.000-0.034) ng/mL NT-Pro-B Natriuret Pep 381 pg/mL Total Protein (6.3-8.2) g/dL Albumin (3.5-5.0) g/dL Stool Occult Blood Positive (Negative) - Radiology Data Radiology results: image reviewed (Chest x-ray shows right hilar mass.) Disposition Clinical Impression: GI hemorrhage, Lung mass Disposition: ADMITTED IP TO THIS HOSP Referrals: Nichelle Smallwood MD [STAFF PHYSICIAN] - 1-2 days Decision Time: 18:48
[2017-02-28 16:27] LABS: Basophils % (A) 0 %; CH 29.3; CHCM 32.5; Eosinophils # (A) 0.3 k/uL (0-0.7); Eosinophils % (A) 3 %; HCT 30.9 % (39.0-53.0); HDW 2.95; HGB 9.9 gm/dL (13.0-17.5); Luc # (Auto) 0.23; Luc % (Auto) 2; Lymphocytes # (A) 1.1 k/uL (1.0-4.8); Lymphocytes % (A) 12 %; MCHC 32.1 g/dL (31.0-37.0); MCV 90.4 fL (80.0-100.0); Mean Platelet Volume 6.8; Monocytes # (A) 0.8 k/uL (0-1.0); Monocytes % (A) 8 %; Neutrophils # (A) 7.3 k/uL (1.3-7.7); Neutrophils % (A) 75 %; RBC 3.42 m/uL (4.30-5.90); RDW 15.3 % (11.5-15.5); WBC 9.8 k/uL (3.8-10.6); WBC (Perox) 10.03
[2017-02-28 16:34] LABS: ALT 30 U/L (21-72); AST 17 U/L (17-59); Alkaline Phosphatase 145 U/L (38-126); Anion Gap 12 mmol/L; Blood Urea Nitrogen 17 mg/dL (9-20); Calcium 9.6 mg/dL (8.4-10.2); Carbon Dioxide 23 mmol/L (22-30); Chloride 99 mmol/L (98-107); Glucose 91 mg/dL (74-99); INR 1.1 (<1.1); Non-African American GFR(MDRD) >60 (>60 ml/min/1.73 sqM); Partial Thromboplastin Time 26.3 sec (22.0-30.0); Potassium 4.6 mmol/L (3.5-5.1); Prothrombin Time 10.8 sec (9.0-12.0); Sodium 134 mmol/L (137-145); Total Bilirubin 0.6 mg/dL (0.2-1.3); Total Protein 6.5 g/dL (6.3-8.2)
[2017-02-28 16:48] LABS: Creatine Kinase 62 U/L (55-170)
[2017-02-28 17:00] LABS: Creatine Kinase MB 1.5 ng/mL (0.0-2.4); Troponin I <0.012 ng/mL (0.000-0.034)
--- NOTE | 2017-02-28 17:40 | XR ---
EXAMINATION TYPE: XR chest 2V DATE OF EXAM: 02/28/2017 COMPARISON: 10/21/2016 HISTORY: Altered mental status. TECHNIQUE: Frontal and lateral views of the chest are obtained. FINDINGS: There is irregular 11 x 6 cm masslike infiltrate in the superior segment of the right lowe r lobe. Heart size is normal. There is no heart failure. There is coarsening of interstitial pulmonar y markings. Thoracic aorta is atheromatous. The bony thorax is intact. There is no sign of pleural ef fusion. There is mild flattening of the diaphragm. IMPRESSION: Masslike infiltrate in the right lower lobe is similar to old chest x-ray of 10/21/2016 a nd is suspicious for malignancy. Follow-up is recommended. COPD. Normal heart. There is probably some degree of volume loss in the right hemithorax compared to old exam that is also suspicious for tumor and obstructive atelectasis.
[2017-02-28] MEDS ORDERED: NALOXONE 0.4 MG/ML 1 ML VIAL IV PRN (18:48)
[2017-02-28] MEDS ORDERED: IPRATROPIUM-ALBUTEROL 3 ML NEB INHALATION PRN (18:49)
[2017-02-28] MEDS: IPRATROPIUM-ALBUTEROL 3 ML NEB INHALATION SCH (21:00)
[2017-02-28 22:04] LABS: Basophils % (A) 0 %; CH 29.1; CHCM 31.7; Eosinophils # (A) 0.2 k/uL (0-0.7); Eosinophils % (A) 2 %; HCT 31.8 % (39.0-53.0); HDW 2.93; HGB 9.9 gm/dL (13.0-17.5); Hypochromasia Slight; Luc # (Auto) 0.22; Luc % (Auto) 2; Lymphocytes # (A) 1.2 k/uL (1.0-4.8); Lymphocytes % (A) 12 %; MCH 28.8 pg (25.0-35.0); MCHC 31.3 g/dL (31.0-37.0); MCV 92.2 fL (80.0-100.0); Mean Platelet Volume 6.3; Monocytes # (A) 0.8 k/uL (0-1.0); Monocytes % (A) 8 %; Neutrophils # (A) 7.7 k/uL (1.3-7.7); Neutrophils % (A) 76 %; RBC 3.44 m/uL (4.30-5.90); RDW 15.3 % (11.5-15.5); WBC 10.2 k/uL (3.8-10.6); WBC (Perox) 10.79
[2017-02-28 22:13] LABS: INR 1.1 (<1.1); Partial Thromboplastin Time 25.8 sec (22.0-30.0); Prothrombin Time 11.2 sec (9.0-12.0)
[2017-03-01] MEDS: SODIUM CHLORIDE 0.9% 1,000 ML IV SCH ×2 (00:10→18:24)
[2017-03-01] MEDS: LORazepam 0.5 MG TAB PO PRN ×2 (01:01→21:46)
[2017-03-01] MEDS: PANTOPRAZOLE 40 MG/10 ML VIAL IVP SCH ×2 (08:02→21:29)
[2017-03-01] MEDS: IPRATROPIUM-ALBUTEROL 3 ML NEB INHALATION SCH ×4 (08:16→19:27)
[2017-03-01 08:51] LABS: Basophils % (A) 0 %; CH 29.7; CHCM 34.5; Eosinophils # (A) 0.3 k/uL (0-0.7); Eosinophils % (A) 3 %; HCT 27.8 % (39.0-53.0); HDW 3.21; HGB 9.6 gm/dL (13.0-17.5); Luc # (Auto) 0.41; Luc % (Auto) 4; Lymphocytes # (A) 1.2 k/uL (1.0-4.8); Lymphocytes % (A) 12 %; MCH 29.9 pg (25.0-35.0); MCHC 34.7 g/dL (31.0-37.0); MCV 86.4 fL (80.0-100.0); Mean Platelet Volume 7.1; Monocytes # (A) 0.9 k/uL (0-1.0); Monocytes % (A) 8 %; Neutrophils # (A) 7.4 k/uL (1.3-7.7); Neutrophils % (A) 72 %; RBC 3.22 m/uL (4.30-5.90); RDW 15.6 % (11.5-15.5); WBC 10.2 k/uL (3.8-10.6); WBC (Perox) 10.96
[2017-03-01] MEDS ORDERED: PANTOPRAZOLE 40 MG/10 ML VIAL IV SCH (09:00)
--- NOTE | 2017-03-01 11:18 | P.CONS ---
History of Present Illness - Reason for Consult Consult date: 03/01/17 GI bleeding Requesting physician: Stephy Robert - History of Present Illness 66-year-old male admitted with shortness of breath for the last few days with nosebleeds and black colored stool. Patient has been experiencing nosebleeds for at least a month without medical attention. No chest pain. Denies gross hematochezia or hematemesis. No history of EGD colonoscopy. Patient states "there is blood in my stool because I been swallowing blood for the last month". Patient requested for GI bleed. Admission hemoglobin 9.9 currently 9.6. BUN 17. Creatinine 1.0. INR 1.1. Hemoccult stool positive. Denies aspirin NSAIDs or antiplatelet medications. Denies weight loss changes in appetite gross hematochezia or hematemesis. Denies abdominal pain. Hemoglobin October 2016 12.3-12.8. Review of Systems Constitutional: Denies fever, chills, sweats, weight gain, or loss. HEENT: Negative for migraines, blurred vision or loss, earaches, drainage, tinnitus, oral mucosal lesions, dysphagia, or odynophagia. Cardiac: CHF. Hypertension. Negative for chest pain, arrhythmias, or palpitation. Respiratory: Negative for shortness of breath, hemoptysis, cough, or sputum production. Gastrointestinal: See HPI for pertinent findings. Genitourinary: Negative for hematuria, urgency, frequency, polyuria, dysuria, or penile discharge. Musculoskeletal: Negative for muscle aches, swelling, arthritis, and arthralgias. Neurologic: Negative for stroke or TIA. Endocrine: Negative for thyroid problems. Skin: Negative for rash or itching. Psychiatric: Negative history for depression and anxiety All systems: negative (See HPI) Past Medical History Past Medical History: Heart Failure, Hypertension Additional Past Medical History / Comment(s): Hypertension, congestion heart failure History of Any Multi-Drug Resistant Organisms: None Reported Past Surgical History: No Surgical Hx Reported Additional Past Surgical History / Comment(s): jaw surgery Past Anesthesia/Blood Transfusion Reactions: No Reported Reaction Past Psychological History: No Psychological Hx Reported Smoking Status: Former smoker Past Alcohol Use History: Daily Past Drug Use History: None Reported Medications and Allergies Home Medications Medication Instructions Recorded Confirmed Type Furosemide [Lasix] 40 mg PO DAILY 02/28/17 02/28/17 History Ipratropium-Albuterol Nebulize 3 ml INHALATION RT-QID PRN 02/28/17 02/28/17 History [Duoneb 0.5 mg-3 mg/3 ml Soln] LORazepam [Ativan] 0.5 mg PO DAILY PRN 02/28/17 02/28/17 History Losartan Potassium [Cozaar] 100 mg PO HS 02/28/17 02/28/17 History Potassium Chloride ER [K-Dur 10] 10 meq PO DAILY 02/28/17 02/28/17 History amLODIPine [Norvasc] 10 mg PO DAILY 02/28/17 02/28/17 History Allergies Allergy/AdvReac Type Severity Reaction Status Date / Time No Known Allergies Allergy Verified 02/28/17 15:56 Physical Exam Vitals: Vital Signs Temp Pulse Pulse Resp BP BP Pulse Ox 03/01/17 08:24 76 03/01/17 08:16 71 03/01/17 07:00 96.4 F L 79 18 154/77 93 L 03/01/17 03:00 70 20 144/70 96 03/01/17 00:08 78 03/01/17 00:00 97.6 F 76 80 20 135/68 93 L 02/28/17 23:00 97.5 F L 84 20 162/92 99 02/28/17 22:00 82 24 148/76 94 L 02/28/17 21:30 80 24 140/80 92 L 02/28/17 19:50 97.3 F L 79 20 159/88 97 02/28/17 19:18 97.6 F 82 18 167/78 95 02/28/17 18:25 81 16 160/76 02/28/17 16:49 78 02/28/17 16:37 76 02/28/17 16:16 22 02/28/17 15:22 97.5 F L 74 20 150/68 93 L Intake and Output 02/28/17 03/01/17 03/01/17 22:59 06:59 14:59 Intake Total 400 300 Balance 400 300 Intake: Oral 400 300 Other: # Voids 1 1 1 # Bowel Movements 1 1 Weight 116.12 kg General appearance: The patient is alert, oriented, in no acute distress. HET: Head is normocephalic and atraumatic. Pupils are equal and reactive. Oropharynx is clear without lesions. Evidence of old dry blood around nares and lips. Neck: Supple without lymphadenopathy. Trachea midline. Heart: S1 S2. Regular rate and rhythm. Lungs: No crackles or wheezes are heard. Abdomen: Soft, nontender, nondistended with bowel sounds. No peritoneal signs. No palpable organomegaly or masses. Extremities: Normal skin color and turgor. No cyanosis, rash, ulceration, clubbing, or edema. Radial and pedal pulses are 2/4 bilaterally. Neurological: No focal deficits. Strength and sensation are grossly intact. Results CBC & Chem 7: 03/01/17 08:10 02/28/17 14:10 Labs: Abnormal Lab Results - Last 24 Hours (Table) 02/28/17 02/28/17 02/28/17 Range/Units 14:10 14:10 21:47 RBC 3.42 L 3.44 L (4.30-5.90) m/uL Hgb 9.9 L 9.9 L (13.0-17.5) gm/dL Hct 30.9 L 31.8 L (39.0-53.0) % RDW (11.5-15.5) % Sodium 134 L (137-145) mmol/L Alkaline Phosphatase 145 H (38-126) U/L 03/01/17 Range/Units 08:10 RBC 3.22 L (4.30-5.90) m/uL Hgb 9.6 L (13.0-17.5) gm/dL Hct 27.8 L (39.0-53.0) % RDW 15.6 H (11.5-15.5) % Sodium (137-145) mmol/L Alkaline Phosphatase (38-126) U/L Assessment and Plan (1) Epistaxis Narrative/Plan: Suspect positive Hemoccult stool from epistaxsis. Status: Acute (2) Acute blood loss anemia Status: Acute Plan: 1. Endoscopy not planned at this time his source of positive Hemoccult felt to be related to nosebleed. Continue monitor CBC., Commend ENT evaluation. Patient was advised following up in the GI office after discharge for reevaluation and discussion of outpatient colonoscopy possible EGD for baseline screening. Thank you for this kind referral and the opportunity to participate in the care of your patient. This consultation was discussed with Dr. Nasr. The impression and plan of care have been directed as dictated.
[2017-03-01] MEDS ORDERED: IPRATROPIUM-ALBUTEROL 3 ML NEB INHALATION PRN (12:20)
--- NOTE | 2017-03-01 13:02 | P.CNPUL ---
History of Present Illness Consult date: 03/01/17 Requesting physician: Stephy Robert Reason for consult: lung mass Chief complaint: shortness of breath History of present illness: This is a 66-year-old male patient being seen, examined and evaluated on the fourth floor. This patient is well known to our services. This patient came into our office in the outpatient setting 02/28/2017 and was noted to be hypoxic and fatigued with coughing up copious amounts of bloody sputum. Patient states that he has had a bloody nose as well as coughing up blood and dark stools for the past week, he states that sometimes he even vomited up blood and he feels that from swallowing so much. The patient also had a right- sided thoracic back rash consistent with shingles for about a week which was painful. Patient has not been treated for shingles in the past. There was some +1 edema to bilateral lower legs as well. The patient was then advised to go to the emergency room for further evaluation. The patient does have a known history of lung mass which he refused further treatment on in the outpatient setting. Upon evaluation in the emergency room the patient did require supplemental oxygen. Labs were reviewed the patient had a WBC of 9.8 hemoglobin of 9.9 platelet count of 348, sodium 134, potassium 4.6, BNP 381. PT 10.8, INR 1.1, APTT 26.3. Stool was positive for occult blood. Overnight apparently the patient did have some epistaxis those difficult to control therefore ENT was put on consult for packing and recommendations. GI also on consult. Upon examination the patient's resting up in bed on 2 L of supplemental oxygen via nasal cannula. The patient does utilize home oxygen at night while sleeping only. Patient states he continues to cough up bloody sputum as well as intermittent epistaxis. Currently is tolerating a clear liquid diet well. Review of Systems 14 point Review of systems was completed and is negative other than what is noted in the HPI Past Medical History Past Medical History: Heart Failure, Hypertension Additional Past Medical History / Comment(s): Hypertension, congestion heart failure History of Any Multi-Drug Resistant Organisms: None Reported Past Surgical History: No Surgical Hx Reported Additional Past Surgical History / Comment(s): jaw surgery Past Anesthesia/Blood Transfusion Reactions: No Reported Reaction Past Psychological History: No Psychological Hx Reported Smoking Status: Former smoker Past Alcohol Use History: Daily Past Drug Use History: None Reported Medications and Allergies Home Medications Medication Instructions Recorded Confirmed Type Furosemide [Lasix] 40 mg PO DAILY 02/28/17 02/28/17 History Ipratropium-Albuterol Nebulize 3 ml INHALATION RT-QID PRN 02/28/17 02/28/17 History [Duoneb 0.5 mg-3 mg/3 ml Soln] LORazepam [Ativan] 0.5 mg PO DAILY PRN 02/28/17 02/28/17 History Losartan Potassium [Cozaar] 100 mg PO HS 02/28/17 02/28/17 History Potassium Chloride ER [K-Dur 10] 10 meq PO DAILY 02/28/17 02/28/17 History amLODIPine [Norvasc] 10 mg PO DAILY 02/28/17 02/28/17 History Allergies Allergy/AdvReac Type Severity Reaction Status Date / Time No Known Allergies Allergy Verified 02/28/17 15:56 Physical Exam Vitals: Vital Signs Temp Pulse Pulse Resp BP BP Pulse Ox 03/01/17 08:24 76 03/01/17 08:16 71 03/01/17 07:00 96.4 F L 79 18 154/77 93 L 03/01/17 03:00 70 20 144/70 96 03/01/17 00:08 78 03/01/17 00:00 97.6 F 76 80 20 135/68 93 L 02/28/17 23:00 97.5 F L 84 20 162/92 99 02/28/17 22:00 82 24 148/76 94 L 02/28/17 21:30 80 24 140/80 92 L 02/28/17 19:50 97.3 F L 79 20 159/88 97 02/28/17 19:18 97.6 F 82 18 167/78 95 02/28/17 18:25 81 16 160/76 02/28/17 16:49 78 02/28/17 16:37 76 02/28/17 16:16 22 02/28/17 15:22 97.5 F L 74 20 150/68 93 L Intake and Output 02/28/17 03/01/17 03/01/17 22:59 06:59 14:59 Intake Total 400 300 Balance 400 300 Intake: Oral 400 300 Other: # Voids 1 1 1 # Bowel Movements 1 1 Weight 116.12 kg GENERAL EXAM: Alert, fatigued, comfortable in no apparent distress. HEAD: Normocephalic. EYES: Normal reaction of pupils, equal size. NOSE: Clear with pink turbinates. Old blood noted in bilateral nares THROAT: No erythema or exudates. NECK: No masses, no JVD. CHEST: No chest wall deformity. LUNGS: Decreased air entry with no crackles, wheeze, rhonchi or dullness. CVS: S1 and S2 normal with no audible mumurs, regular rhythm. ABDOMEN: No hepatosplenomegaly, normal bowel sounds, no guarding or rigidity. EXTREMITIES: 1+ edema noted, pedal pulses palpable. SKIN: Right-sided thoracic erythema back rashs, consistent with shingles CENTRAL NERVOUS SYSTEM: No focal deficits, tone is normal in all 4 extremities. Results - Laboratory Findings CBC and BMP: 03/01/17 08:10 02/28/17 14:10 PT/INR, D-dimer PT 11.2 sec (9.0-12.0) 02/28/17 21:47 INR 1.1 (<1.1) 02/28/17 21:47 Abnormal lab findings: Abnormal Labs 02/28/17 02/28/17 02/28/17 14:10 14:10 21:47 RBC 3.42 L 3.44 L Hgb 9.9 L 9.9 L Hct 30.9 L 31.8 L RDW Sodium 134 L Alkaline Phosphatase 145 H 03/01/17 08:10 RBC 3.22 L Hgb 9.6 L Hct 27.8 L RDW 15.6 H Sodium Alkaline Phosphatase - Diagnostic Findings Chest x-ray: report reviewed, image reviewed Assessment and Plan Plan: Assessment Acute hypoxic respiratory failure Acute exacerbation of chronic obstructive pulmonary disease Lung mass Acute exacerbation of congestive heart failure Acute GI hemorrhage Acute blood loss anemia Epistaxis Shingles Plan Medications have been reviewed and will be continued as ordered. Patient may be a candidate for bronchoscopy procedure, however patient has declined this procedure in the past we'll continue to address this with the patient to see if he would like to further proceed. Continue IV antibiotics. Continue with pulmonary hygiene, coughing and deep breathing exercises, and supportive care. Supplemental oxygen to maintain oxygen saturations of 92% or better. Continue nebulizer treatments. GI and DVT prophylaxis. Appreciate other consults recommendations. We will continue to monitor labs/results and adjust treatment as necessary. Further recommendations pending. I performed an examination of the patient and discussed their management with the nurse practitioner. I have reviewed the nurse practitioner's note and agree with the documented findings and plan of care.
--- NOTE | 2017-03-01 15:09 | CT ---
EXAMINATION TYPE: CT chest wo con DATE OF EXAM: 03/01/2017 COMPARISON: CT chest October 14, 2016 HISTORY: Patient complains of difficulty breathing. CT DLP: 805.3 mGycm. Automated Exposure Control for Dose Reduction was Utilized. TECHNIQUE: CT scan of the thorax is performed without IV contrast. FINDINGS: LUNGS: There is background of mild to moderate emphysematous change redemonstrated. There is persiste nt masslike consolidation right hilar level most prominent in the right lower lobe increasing in size from prior exam. There is suggestion of endobronchial invasion seen best on coronal image 64 and axi al image 36 on current study. Some additional scattered areas of nodular infiltrate throughout the ri ght lower lobe have progressed from prior study. Some new groundglass opacity also involves the right middle lobe. Elevated left hemidiaphragm is redemonstrated. Some scarring anteriorly and inferiorly in the left lung remains present. MEDIASTINUM: Lack of IV contrast is noted to limit evaluation for mediastinal and especially hilar ad enopathy. There are no definitive new greater than 1 cm hilar or mediastinal lymph nodes. Prominent b ut subcentimeter AP window, subcarinal, and paratracheal are redemonstrated. Previously visualized s uspicious right hilar lymph nodes are less well seen on noncontrast study likely stable narrowing axi al image 32. No cardiomegaly or pericardial effusion is seen. Three-vessel coronary artery calcificat ion is noted. OTHER: Simple appearing 5.3 cm cyst posteriorly upper pole level left kidney is redemonstrated. There is moderate atherosclerotic change of aorta. There is aneurysm of the abdominal aorta measuring up t o 3.8 cm in AP diameter on axial image 72. There is multilevel spurring in the spine. IMPRESSION: Enlarging right hilar masslike consolidation with now bronchial invasion, central neoplas m suspected, bronchoscopy evaluation advised if has not been performed. Increasing peripheral nodular ity and groundglass opacity could reflect obstructive atelectatic change but other etiologies such as infectious or tumor spread are not excluded.
[2017-03-01] MEDS: LOSARTAN 50 MG TAB PO SCH (21:46)
--- NOTE | 2017-03-01 21:47 | CONS ---
REASON FOR CONSULTATION: Epistaxis. HISTORY: This is a 66-year-old white male who was admitted with shortness of breath particularly, although had some black-colored stool. He states that he has been coughing up and spitting up some blood. Apparently he has had some epistaxis reportedly thought to be secondary to some nasal cannula oxygen. He also has had some upset stomach. His hemoglobin is 9.6. He does have a known pulmonary mass at the hilum which was re-evaluated with a CT scan today, which does show a mass with some invasion of the bronchus. This has not been reviewed with the patient yet. Apparently the gastroenterologists are not feeling he requires an endoscopy. The patient states he had some epistaxis, although mild, bilaterally. He feels that he is coughing up blood rather than expectorating it or spitting it up. PAST MEDICAL HISTORY: Positive for COPD, heart failure, hypertension. PAST SURGICAL HISTORY: Jaw surgery. ALLERGIES: No known drug allergies. SOCIAL HISTORY: Did smoke; quit in October of this year. Alcohol consumption daily. MEDICATIONS AT HOME: 1. Nebulizers. 2. Ativan. 3. Cozaar. 4. K-Dur. 5. Norvasc. REVIEW OF SYSTEMS: Noncontributory other than as above. PHYSICAL EXAM: GENERAL: This is a well-developed white male in no acute distress. His voice is normal. He is conversant, awake, alert and oriented x3. HEENT: Head normocephalic and atraumatic. EARS: Bilaterally canals clear. Tympanic membranes unremarkable and mobile. The nose shows mild old blood on the anterior septum bilaterally. No active bleeding. The nasopharynx is unremarkable. Oropharynx shows no abnormal masses or blood, including posterior bleeding. Hypopharynx and larynx, including flexible laryngoscopy, show no abnormal masses or lesions. Normal vocal mobility. NECK: Supple without adenopathy or tenderness. ASSESSMENT: 1. Bilateral mild anterior epistaxis secondary to nasal dryness with nasal cannula oxygen. 2. Hemoptysis. 3. Anemia. 4. Pulmonary mass. PLAN: I reviewed findings with the patient today. I recommend nasal moisturization strategies, including nasal saline spray and avoidance of nasal cannula oxygen as much as possible and if so, humidified, and possibly converting over to an oxygen mass which is humidified. It is felt that with the level of anemia that the patient has, it would be unusual for what is being seen in the nose presently to cause this type of anemia and this would be more likely to be secondary to either pulmonary bleeding with hemoptysis from the mass or GI bleeding. Therefore, certainly bronchoscopy and even possibly EGD would still be in order and will leave this to primary service to decide on. It appears that his most pressing need presently would be the pulmonary mass. If you have any questions or concerns, please feel free to contact me.
--- NOTE | 2017-03-01 21:54 | PCN ---
PREOPERATIVE DIAGNOSIS: Epistaxis, hemoptysis. POSTOPERATIVE DIAGNOSIS: Epistaxis, hemoptysis. PROCEDURE: Flexible laryngoscopy. ANESTHESIA: None. COMPLICATIONS: None. FINDINGS: See residential solar consultant note. BLOOD LOSS: None. COMPLICATIONS: None. PROCEDURE: Patient was in his hospital chair in a sitting position. Flexible laryngoscopy was performed of both nasal cavities with systematic evaluation of the nasal cavities, nasopharynx, oropharynx, hypopharynx and larynx with above findings noted. No active bleeding in these sites.
--- NOTE | 2017-03-01 23:34 | HP ---
DATE OF ADMISSION: 02/28/2017 The patient is a 66 -year-old came in with complaints of nose bleed, has been going on and off. The patient also had possible hemoptysis. The patient had a dark colored stool because of which the patient was admitted. Although patient has only one episode of dark stool today and a couple of episodes yesterday. Patient denied any hematemesis. Denied any abdominal pain. The patient was evaluated by gastroenterology. They believe the patient has bleeding from epistaxis and hemoptysis, because of which patient was having melanotic stool. Hemoglobin although remained stable and pulmonology was consulted because of suspicious mass in the ( ). Patient so far declined any bronchoscopy. Now he is agreeable for bronchoscopy and patient is not on any NSAIDs or antiplatelets at this point of time. Not on any anticoagulation. Patient denied any fever, chills. Patient denied cough, shortness of breath. REVIEW OF SYSTEMS: CONSTITUTIONAL: As described in history of present illness. HEENT: No recent visual problems or hearing problems. Denied any sore throat. CARDIOVASCULAR: No chest pain, orthopnea, PND, no palpitations, no syncope. PULMONARY: As described in history of present illness. GASTROINTESTINAL: No diarrhea, no nausea, no vomiting, no abdominal pain. Normoactive bowel sounds. NEUROLOGICAL: No headaches, no weakness, no numbness. HEMATOLOGICAL: Denies any bleeding or petechiae. GENITOURINARY: Denies any burning micturition, frequency, or urgency. MUSCULOSKELETAL/RHEUMATOLOGICAL: Denies any joint pain, swelling, or any muscle pain. ENDOCRINE: Denies any polyuria or polydipsia. The rest of the 14 point review of systems is negative. Past medical history significant for hypertension, COPD, chronic bronchitis and patient has history of congestive heart failure but patient has normal ejection fraction may have diastolic dysfunction. SOCIAL HISTORY: Quit smoking years ago. Denied any alcohol abuse or any drug abuse. FAMILY HISTORY: Unavailable this point of time. Home medications include: 1. Lasix. 2. ( ). 3. Albuterol. 4. Lorazapam. 5. Potassium chloride. 6. Amlodipine. ALLERGIES: No known drug allergies. PHYSICAL EXAMINATION: Temperature 96.7, pulse 100, respiratory rate 18. Blood pressure is 154/75, saturating at 93% on room air. GENERAL: The patient is alert and oriented x3, not in any acute distress. Well developed, well nourished. HEENT: Pupils are round and equally reacting to light. EOMI. No scleral icterus. No conjunctival pallor. Normocephalic, atraumatic. No pharyngeal erythema. No thyromegaly. CARDIOVASCULAR: S1 and S2 present. No murmurs, rubs, or gallops. PULMONARY: Chest is clear to auscultation, no wheezing or crackles. ABDOMEN: Soft, nontender, nondistended, normoactive bowel sounds. No palpable organomegaly. MUSCULOSKELETAL: No joint swelling or deformity. EXTREMITIES: No cyanosis, clubbing. The patient has 1+ pedal edema ( ) appears to have chronic edema. NEUROLOGICAL: Gross neurological examination did not reveal any focal deficits. SKIN: No rashes. LABORATORY DATA: CBC, CMP abnormal for low hemoglobin of 9.7, although that hemoglobin is fairly stable at this point of time. Chest x-ray was reviewed. CT of the chest was done today by pulmonology which was reviewed as well and which showed enlarging hilar mass. ASSESSMENT AND PLAN: 1. Epistaxis and hemoptysis. Repeat CT as mentioned above. Patient probably will undergo bronchoscopy. 2. Suspicion for acute gastrointestinal bleed is low. Patient is not on any antiplatelet therapy. 3. Chronic bronchitis, ( )acute exacerbation. 4. Chronic obstructive pulmonary disease without any acute exacerbation. 5. Hypertension. 6. Congestive heart failure chronic diastolic dysfunction without any ( ), Continue home dose of Lasix. 7. Acute renal failure secondary to probably excessive diuresis. We will hold off on ( ) also tiffany inhibitor ( ). PLAN: Possibility of bronchoscopy tomorrow and the patient's kidney function creatinine is ( ).
[2017-03-02] MEDS: IPRATROPIUM-ALBUTEROL 3 ML NEB INHALATION SCH ×4 (07:01→20:58)
[2017-03-02 08:51] LABS: Anion Gap 11 mmol/L; Blood Urea Nitrogen 13 mg/dL (9-20); Calcium 9.3 mg/dL (8.4-10.2); Carbon Dioxide 24 mmol/L (22-30); Chloride 98 mmol/L (98-107); Glucose 113 mg/dL (74-99); Non-African American GFR(MDRD) >60 (>60 ml/min/1.73 sqM); Potassium 4.1 mmol/L (3.5-5.1); Sodium 133 mmol/L (137-145)
[2017-03-02] MEDS: FUROSEMIDE 40 MG TAB PO SCH (08:54)
[2017-03-02] MEDS: amLODIPine 10 MG TAB PO SCH (08:54)
[2017-03-02] MEDS: PANTOPRAZOLE 40 MG/10 ML VIAL IVP SCH ×2 (08:54→20:35)
[2017-03-02 08:57] LABS: CH 28.7; CHCM 32.2; HCT 25.9 % (39.0-53.0); HDW 3.01; HGB 8.8 gm/dL (13.0-17.5); Hypochromasia Slight; MCH 30.3 pg (25.0-35.0); MCHC 33.8 g/dL (31.0-37.0); MCV 89.8 fL (80.0-100.0); Mean Platelet Volume 6.9; RBC 2.89 m/uL (4.30-5.90); RDW 15.6 % (11.5-15.5)
--- NOTE | 2017-03-02 10:31 | P.PN ---
Subjective This is a 66-year-old male patient being seen, examined and evaluated on the fourth floor. This patient is well known to our services. This patient came into our office in the outpatient setting 02/28/2017 and was noted to be hypoxic and fatigued with coughing up copious amounts of bloody sputum. Patient states that he has had a bloody nose as well as coughing up blood and dark stools for the past week, he states that sometimes he even vomited up blood and he feels that from swallowing so much. The patient also had a right- sided thoracic back rash consistent with shingles for about a week which was painful. Patient has not been treated for shingles in the past. There was some +1 edema to bilateral lower legs as well. The patient was then advised to go to the emergency room for further evaluation. The patient does have a known history of lung mass which he refused further treatment on in the outpatient setting. Upon evaluation in the emergency room the patient did require supplemental oxygen. Labs were reviewed the patient had a WBC of 9.8 hemoglobin of 9.9 platelet count of 348, sodium 134, potassium 4.6, BNP 381. PT 10.8, INR 1.1, APTT 26.3. Stool was positive for occult blood. Overnight apparently the patient did have some epistaxis those difficult to control therefore ENT was put on consult for packing and recommendations. GI also on consult. Upon examination the patient's resting up in bed on 2 L of supplemental oxygen via nasal cannula. The patient does utilize home oxygen at night while sleeping only. Patient states he continues to cough up bloody sputum as well as intermittent epistaxis. Currently is tolerating a clear liquid diet well. 03/02/17- upon examination the patient continues to rest up in the bedside chair on 2 L of supplemental oxygen via nasal cannula. Patient's hemoglobin this morning is 8.8, WBC is 8.0, sodium is 133. Patient states this morning he continues to have intermittent episodes of epistaxis and bloody sputum. Patient did sneeze during my physical exam and bright red blood clots came from bilateral nares. Patient was seen by ENT yesterday and no active bleeding was seen at that time in the nose. GI consult also seen the patient and there is no plan for an EGD at this time. Patient is scheduled to undergo a bronchoscopy with possible biopsies tomorrow morning. Objective - Vital Signs Vital signs: Vital Signs Temp 96.1 F L 03/02/17 07:00 Pulse 90 03/02/17 07:14 Resp 20 03/02/17 07:01 BP 129/67 03/02/17 07:00 Pulse Ox 96 03/02/17 07:00 Intake & Output 03/01/17 03/02/17 03/02/17 18:59 06:59 18:59 Intake Total 600 Balance 600 Weight 111.811 kg Intake: Oral 600 Other: Voiding Method Toilet Bedpan Urinal # Voids 2 2 # Bowel Movements 1 - Exam GENERAL EXAM: Alert, fatigued, comfortable in no apparent distress. HEAD: Normocephalic. EYES: Normal reaction of pupils, equal size. NOSE: pink turbinates. Old blood mixed with bright red blood noted in bilateral nares THROAT: No erythema or exudates. NECK: No masses, no JVD. CHEST: No chest wall deformity. LUNGS: Decreased air entry with no crackles, wheeze, rhonchi or dullness. Bases diminished CVS: S1 and S2 normal with no audible mumurs, regular rhythm. ABDOMEN: No hepatosplenomegaly, normal bowel sounds, no guarding or rigidity. EXTREMITIES: 1+ edema noted, pedal pulses palpable. SKIN: Right-sided thoracic erythema back rashs, consistent with shingles CENTRAL NERVOUS SYSTEM: No focal deficits, tone is normal in all 4 extremities. - Labs CBC & Chem 7: 03/02/17 07:49 03/02/17 07:49 Labs: Abnormal Lab Results - Last 24 Hours (Table) 03/02/17 03/02/17 Range/Units 07:49 07:49 RBC 2.89 L (4.30-5.90) m/uL Hgb 8.8 L (13.0-17.5) gm/dL Hct 25.9 L (39.0-53.0) % RDW 15.6 H (11.5-15.5) % Sodium 133 L (137-145) mmol/L Glucose 113 H (74-99) mg/dL Assessment and Plan Plan: Assessment Acute hypoxic respiratory failure Acute exacerbation of chronic obstructive pulmonary disease Lung mass Acute exacerbation of congestive heart failure Acute GI hemorrhage Acute blood loss anemia Epistaxis Shingles Plan Medications have been reviewed and will be continued as ordered. Patient will undergo bronchoscopy with biopsies tomorrow morning. The procedure risk and benefits of bronchoscopy have been discussed with the patient at length, all questions have been answered. Patient will be made nothing by mouth after midnight tonight. Continue IV antibiotics. Continue with pulmonary hygiene, coughing and deep breathing exercises, and supportive care. Supplemental oxygen to maintain oxygen saturations of 92% or better. Continue nebulizer treatments. GI and DVT prophylaxis. Appreciate other consults recommendations. We will continue to monitor labs/results and adjust treatment as necessary. Further recommendations pending. I performed an examination of the patient and discussed their management with the nurse practitioner. I have reviewed the nurse practitioner's note and agree with the documented findings and plan of care.
--- NOTE | 2017-03-02 20:22 | PN ---
DATE OF SERVICE: 03/02/2017 ADDENDUM Mr. Johnson is a 66-year-old who came into hospital with hemoptysis. Patient has significant epistaxis as well, for which he has been evaluated by ENT services. No significant bleeding lesion has been identified. I reviewed the CT scan of the chest. There is a dense mass-like lesion present in the right lower lobe superior segment with alveolar infiltrate in the right upper lobe as well, which could be a pneumonia as well. Patient has been agreeable for bronchoscopy and transbronchial lung biopsy, which is scheduled for tomorrow. Patient likely has a component pneumonia as well. Would recommend to start patient on empiric broad-spectrum antibiotics in the form of IV Rocephin starting tonight. We will put patient on steroids as well. We will start the antibiotics and steroids today and continue breathing treatments. Further recommendations pending. IMPRESSION AND PLAN: Hemoptysis, most likely due to a neoplastic process with right upper lobe pneumonia, may be aspiration mixed bacterial. For now, initiate and maintain above-mentioned therapy. Will follow.
[2017-03-02] MEDS: LORazepam 0.5 MG TAB PO PRN (20:37)
[2017-03-02] MEDS: LOSARTAN 50 MG TAB PO SCH (20:37)
[2017-03-02] MEDS: SODIUM CHLORIDE 0.9% 1,000 ML IV SCH (20:37)
[2017-03-02] MEDS: methylPREDNISolone SOD SUCCI 40 MG/ML 1 ML VIAL IV SCH (20:37)
[2017-03-02 21:36] LABS: Hemoglobin A1C 5.2 % (4.2-6.1)
--- NOTE | 2017-03-02 21:55 | PN ---
Patient had continued hemoptysis until last night, which improved at this point of time. Patient underwent flexible laryngoscopy which did not show any significant abnormality. Patient is not sure why he was started on antibiotic; probably as a preoperative antibiotic for bronchoscopy tomorrow. Patient has expanding hilar lymphadenopathy, for which patient is going for bronchoscopy. Most probably after bronchoscopy patient can be discharged. REVIEW OF SYSTEMS: GENERAL: As described in HPI. CARDIOVASCULAR: No chest pain, no orthopnea, no PND, no palpitations. PULMONARY: Denied any shortness of breath. No cough or hemoptysis. GASTROINTESTINAL: No diarrhea, nausea or vomiting. No abdominal pain. Normoactive bowel sounds. NEUROLOGIC: No headaches, no weakness, no numbness. Medications were reviewed. PHYSICAL EXAMINATION: VITAL SIGNS: Temperature 96.8, pulse of 86, respiratory rate of 20, blood pressure 127/67. Saturating at 96% on room air. GENERAL: The patient is alert and oriented x3, not in any acute distress. Well developed, well nourished. HEENT: Pupils are round and equally reacting to light. EOMI. No scleral icterus. No conjunctival pallor. Normocephalic, atraumatic. No pharyngeal erythema. No thyromegaly. CARDIOVASCULAR: S1 and S2 present. No murmurs, rubs, or gallops. PULMONARY: Significantly ( ) air entry into bilateral lung guzman. No wheezing was appreciated. ABDOMEN: Soft, nontender, nondistended, normoactive bowel sounds. No palpable organomegaly. MUSCULOSKELETAL: No joint swelling or deformity. EXTREMITIES: No cyanosis, clubbing, or pedal edema. NEUROLOGICAL: Gross neurological examination did not reveal any focal deficits. SKIN: No rashes. LABORATORY DATA: CBC, CMP are abnormal for low hemoglobin of 8.8, sodium of 133. ASSESSMENT AND PLAN: 1. Epistaxis and hemoptysis secondary to nasal dryness from nasal cannula oxygen. Patient is not on nasal cannula oxygen at this point of time. 2. Chronic obstructive pulmonary disease without any acute exacerbation. Patient does have chronic bronchitis. 3. Hilar lymphadenopathy which is worse compared to previous CT. Patient is undergoing bronchoscopy tomorrow. After that patient will be discharged. 4. ( ) without any acute exacerbation. 5. Hyponatremia, probably hypovolemic hyponatremia. No further intervention at this point of time. Patient does not have any significant ( ) can be resumed on home dose of Lasix, which is being held at this point of time.
[2017-03-03] MEDS: LACTATED RINGERS 1,000 ML IV SCH (06:07)
[2017-03-03] MEDS: IPRATROPIUM-ALBUTEROL 3 ML NEB INHALATION SCH ×4 (07:14→19:10)
[2017-03-03 07:29] LABS: Glucose,Whole Blood 139 mg/dL (75-99)
[2017-03-03] MEDS: INSULIN LISPRO (humaLOG) 300 UNIT/3 ML VIAL SQ SCH ×4 (08:20→22:06)
[2017-03-03] MEDS: PANTOPRAZOLE 40 MG/10 ML VIAL IVP SCH ×2 (08:24→22:06)
[2017-03-03] MEDS: FUROSEMIDE 40 MG TAB PO SCH (08:25)
[2017-03-03] MEDS: amLODIPine 10 MG TAB PO SCH (08:25)
[2017-03-03] MEDS: methylPREDNISolone SOD SUCCI 40 MG/ML 1 ML VIAL IV SCH ×2 (08:25→22:06)
[2017-03-03] MEDS ORDERED: IV FLUID CONTINUATION 800 ML IV ONE (08:56)
[2017-03-03] MEDS ORDERED: PROPOFOL 10 MG/ML 20 ML VIAL IV ONE (09:26)
[2017-03-03] MEDS ORDERED: LIDOCAINE 2% INJ 20 MG/ML INTRATRACH ONE (09:31)
[2017-03-03 11:53] LABS: Glucose,Whole Blood 130 mg/dL (75-99)
--- NOTE | 2017-03-03 14:40 | PN ---
DATE OF SERVICE: 03/03/2017 Mr. Johnson is seen, evaluated, examined this morning. Patient had no hemoptysis earlier today; however, continued to have some intermittent streaks of blood. The severity of hemoptysis slightly improved since he has been on steroids, antibiotics. The CT scan of the chest has been reviewed. Large right-sided lung mass has progressed and appears to have invaded the right lower lobe bronchus. The patient is for bronchoscopy and airway inspection later on today. Procedure has been explained to the patient at length, including the family. Blood pressure is 115/73, respiratory rate 20, pulse 101 temperature 97, saturating 93% on 2L oxygen. HEENT: Atraumatic, normocephalic. Pharynx is clear. Narrow pharyngeal opening is present. NECK: Supple without lymphadenopathy, jugular venous distention or carotid bruit. LUNGS: Bilateral good air entry is present without significant rales, rhonchi or rub. HEAR: Regular rate and rhythm. S1 and S2 audible. ABDOMEN: Soft. No rebound or rigidity. EXTREMITIES: +1 peripheral pulses. NEUROLOGICAL: Otherwise, awake and alert. No focal neurological deficits. LABS: Reviewed. Medications reviewed as well. White cell count is 8000, hemoglobin 8.8 and hematocrit 25, platelet count of 407,000. Sodium 133, potassium 4.1. BUN and creatinine 13 and 0.98. IMPRESSION: 1. Hemoptysis. 2. Right lower lobe lung mass invading into right bronchus, involving the lower lobe. 3. Severe chronic obstructive pulmonary disease. 4. Morbid obesity. 5. Hypertension, hypertensive cardiovascular disease. Plan and recommendation is to proceed with bronchoscopy and airway inspection.
--- NOTE | 2017-03-03 14:40 | P.CONS ---
History of Present Illness - Reason for Consult Consult date: 03/03/17 hemoptysis Requesting physician: Ravindra Ritchie - Chief Complaint hemoptysis - History of Present Illness Patient is a 66-year-old male who presents with a history of hemoptysis for the past 3 weeks. The patient was initially diagnosed with a pneumonia in October 2016. CT scan of the chest from October 14 revealed a right perihilar mass 3 x 4.4 x 5.6 cm in size as well as a suspicious right hilar lymph node that was approximately 2 cm. The patient was recommended to undergo bronchoscopy in further workup, but he has refused additional workup of this likely malignancy. The patient was subsequently admitted on February 28 complaining of shortness of breath, epistaxis and coughing up bloody sputum. He did have a positive fecal occult blood test. The patient was concerned that he was having epistaxis, and Dr. Whitaker performed fiberoptic exam at the bedside; this was negative. The patient underwent a repeat CT scan of the chest, this time without contrast on March 01. This revealed an enlarging right hilar mass with suspicion for endobronchial invasion. There were scattered nodular infiltrates within the right lower lobe had progressed since the previous scan. This morning, the patient underwent bronchoscopy under the care of Dr. Ritchie. Dr. Ritchie appreciated a mass within the right mainstem, and was able to get biopsy and cytology. The patient reports that he is able to walk to his mailbox, but he is winded when he gets therapy. He is unable to walk 1 flight of stairs without becoming extremely dyspneic. He feels he may have lost a small amount of weight recently , but he cannot quantify. Review of Systems Constitutional: Reports weight loss, Denies fever, Denies sweats Eyes: denies blurred vision Ears, nose, mouth and throat: Reports epistaxis (per patient, likely just from lung) Cardiovascular: Reports dyspnea on exertion, Reports leg edema, Denies chest pain Respiratory: Reports cough with sputum, Reports hemoptysis, Reports home oxygen Gastrointestinal: Denies abdominal pain Musculoskeletal: Denies arm numbness/tingling Neurological: Denies aphasia, Denies double vision, Denies seizures Psychiatric: Denies confusion Past Medical History Past Medical History: Heart Failure, Hypertension Additional Past Medical History / Comment(s): Hypertension, congestion heart failure History of Any Multi-Drug Resistant Organisms: None Reported Past Surgical History: No Surgical Hx Reported Additional Past Surgical History / Comment(s): jaw surgery Past Anesthesia/Blood Transfusion Reactions: No Reported Reaction Past Psychological History: No Psychological Hx Reported Smoking Status: Former smoker Past Alcohol Use History: Daily (Drinks 4 beers / day, previously drank 10-12 beers/day. Lives in [place] with his .) Past Drug Use History: None Reported Medications and Allergies Home Medications Medication Instructions Recorded Confirmed Type Furosemide [Lasix] 40 mg PO DAILY 02/28/17 02/28/17 History LORazepam [Ativan] 0.5 mg PO DAILY PRN 02/28/17 02/28/17 History Losartan Potassium [Cozaar] 100 mg PO HS 02/28/17 02/28/17 History Potassium Chloride ER [K-Dur 10] 10 meq PO DAILY 02/28/17 02/28/17 History amLODIPine [Norvasc] 10 mg PO DAILY 02/28/17 02/28/17 History Allergies Allergy/AdvReac Type Severity Reaction Status Date / Time No Known Allergies Allergy Verified 02/28/17 15:56 Physical Exam Vitals: Vital Signs Temp Pulse Pulse Pulse Resp BP BP 03/03/17 11:52 78 03/03/17 11:39 76 03/03/17 11:05 20 115/73 03/03/17 10:43 101 H 03/03/17 07:26 80 03/03/17 07:14 82 16 03/03/17 07:00 97.2 F L 90 16 168/78 03/02/17 23:00 98.3 F 93 16 128/78 03/02/17 21:07 78 03/02/17 21:00 84 03/02/17 17:46 88 16 03/02/17 16:00 77 83 16 03/02/17 15:00 96.9 F L 77 16 135/69 Pulse Ox 03/03/17 11:52 03/03/17 11:39 03/03/17 11:05 93 L 03/03/17 10:43 03/03/17 07:26 03/03/17 07:14 03/03/17 07:00 96 03/02/17 23:00 93 L 03/02/17 21:07 03/02/17 21:00 03/02/17 17:46 03/02/17 16:00 03/02/17 15:00 96 Intake and Output 03/02/17 03/03/17 03/03/17 22:59 06:59 14:59 Intake Total 200 Output Total 900 Balance -900 200 Intake: IV 200 Output: Urine 900 Other: Voiding Method Urinal Urinal # Voids 1 - Constitutional General appearance: average body habitus, no acute distress - EENT Eyes: PERRLA ENT: hearing grossly normal - Neck Neck: no lymphadenopathy - Respiratory Respiratory: right: diminished (right lower lung field), left: CTA - Cardiovascular Rhythm: regular - Gastrointestinal General gastrointestinal: no tenderness - Integumentary Integumentary: no calor, no jaundiced - Neurologic Neurologic: CNII-XII intact - Psychiatric Psychiatric: A&O x's 3 Results CBC & Chem 7: 03/02/17 07:49 03/02/17 07:49 Labs: Abnormal Lab Results - Last 24 Hours (Table) 03/03/17 03/03/17 Range/Units 07:27 11:50 POC Glucose (mg/dL) 139 H 130 H (75-99) mg/dL CT scan - chest: report reviewed, image reviewed Assessment and Plan (1) Lung mass Status: Acute Plan: 1. I explained to the patient, that his CT scan showed progression of a right perihilar lung mass over the past 4 months. This mass now appears to invade the right mainstem bronchus, and causing his hemoptysis. The patient initially refused further workup of this mass. I explained to the patient, that the overwhelming likelihood is that this represents a malignancy. Especially considering the patient has an [id number] smoking history. I recommended the patient undergo CT simulation today, so that radiotherapy can to be delivered urgently if the need arises. I explained to the patient, that my preference was to have a definitive diagnosis from pathology prior to initiating therapy. I discussed with the patient, that he would first undergo CT simulation for treatment planning. Radiotherapy would be delivered Monday through Monday, 5 days a week for approximately 1-2 weeks for a palliative course. I did explain to the patient, that there is a chance that this is a potentially curative disease. He would require further workup to rule out distant spread of disease. I explained to the patient that possible side effects of radiotherapy would include, but are not limited to; fatigue, dysphagia, odynophagia, cough and the long-term effects including radiation pneumonitis and fibrosis. At the end of our consultation, the patient said he would discuss this potential therapy with his . I urged the patient to make a decision this afternoon regarding at least undergoing a planning session. The patient expressed some hesitation regarding finances as well as a 40 mile travel to our facility. 2. If the patient does decide to ultimately undergo treatment. He should have either a PET CT scan or a contrast CT scan of the chest, abdomen and pelvis to rule out distant disease; MRI of the brain would also be recommended. Thank you for the referral of this patient, we will continue to follow along during this hospital course. Time with Patient: Greater than 30
[2017-03-03 16:52] LABS: Glucose,Whole Blood 154 mg/dL (75-99)
--- NOTE | 2017-03-03 19:15 | PCN ---
DATE OF PROCEDURE: 03/03/2017 PROCEDURE: 1. Bronchoscopy. 2. Bronchoalveolar lavage. 3. Bronchial biopsy. OPERATIVE DETAIL: Patient was prepared and draped in the usual fashion. The fiberoptic bronchoscope was utilized, passed through the right naris. Vocal cords were normal in structure and function. Old blood was seen in the laryngeal area as well as in the nose; however, no active bleeding site was identified. Tip of the scope was passed beyond the vocal cords into the trachea, which was normal in structure and function. However, some old blood was seen. The left side was inspected; again some old blood was seen, but no active bleeding was identified. The left upper lobe, lingular lobe and left lower lobe along with subsegments were inspected. No endobronchial mass or lesion was seen. Tip of the scope was subsequently passed on the right side. Right upper lobe was normal except for some old blood. The right main stem bronchus had a large growth present occupying almost two thirds of the area which was oozing blood with little manipulation and touching. A little bit more bleeding was seen which was occluding the lens of the bronchoscope as well as the lumen, which was cleaned multiple times. BAL was performed from the area. Pictures were obtained. I was able to get one biopsy. Patient intermittently, however, continued to drop in saturation. Because of plugging of the scope, the scope was withdrawn. As per recommended by Anesthesia, scope was not placed back in, as patient's oxygen saturation was only 77%. Besides those episodes, patient tolerated the procedure well. No complication noted. The samples and specimens are being sent for processing and testing. I have discussed these finding issues with Dr. Sanchez from Radiation Oncology. Patient may very well be a candidate for palliative radiation. These issues were discussed with the patient's and daughter subsequently as well. Patient is being sent to the recovery area.
[2017-03-03 20:42] LABS: Glucose,Whole Blood 122 mg/dL (75-99)
[2017-03-03] MEDS: LOSARTAN 50 MG TAB PO SCH (22:06)
[2017-03-03] MEDS: LORazepam 0.5 MG TAB PO PRN (22:10)
[2017-03-03] MEDS: SODIUM CHLORIDE 0.9% 1,000 ML IV SCH (22:11)
--- NOTE | 2017-03-03 23:12 | PN ---
Mr. Johnson is a 66-year-old male with known history of COPD, and 80 pack years of smoking and diagnosed with right perihilar mass and refused further work-up at that time. Patient admitted to the hospital with hemoptysis which has been resolved now. The patient underwent bronchoscopy and biopsy. Patient also having repeat test today, showed enlarged mass with lymph node involvement as well as . Currently, patient denied any complaints of chest pain or short of breath. Otherwise a poor historian and has been refusing treatment at times. Radiation oncology has been consulted and recommended CT simulation at this time. REVIEW OF SYSTEMS: CONSTITUTIONAL: No fever. No chills. No chest pain. No short of breath. No nausea or vomiting. No orthopnea, no PND . Gastrointestinal: No nausea, vomiting, abdominal pain. No diarrhea. NEUROLOGIC: No lightheadedness. No weakness. MUSCULOSKELETAL: negative All other 14 point review of systems negative except as above. PHYSICAL EXAMINATION: Mr. Johnson is a 66-year-old male, sitting in a chair comfortably, awake, alert, oriented x3. He appears to be in no apparent distress. VITALS: Blood pressure is 161/84, pulse 105, respirations 16, temperature afebrile, pulse ox 97% on room air. HEENT: Atraumatic. Normocephalic. Neck is supple. No JVD. CARDIOVASCULAR: S1, S2 heard. No murmurs or gallop. LUNGS: Bilateral air entry is present. No wheezing. No crackles. Nonlabored breathing. Decreased air entry right ( ). ABDOMEN: Soft, nontender, Bowel sounds are present. CENTRAL NERVOUS SYSTEM: Awake, alert and oriented x3. No focal deficit. EXTREMITIES: No edema. Pulses palpable bilaterally. No clubbing or cyanosis. PSYCHIATRIC: Cooperative. LABORATORY DATA: WBC 8.0, hemoglobin 8.8, platelets 407, sodium 133, potassium 4.1, chloride 98, bicarb is 24. BUN 13, creatinine 0.98. HbA1c is 5.2, calcium 9.3. IMPRESSION: 1. Hemoptysis secondary to perihilar mass with bronchial interaction. No active bleeding at this time.. 2. Lung mass, suspected malignancy status post bronchoscopy and biopsy today. Mass has increased in size compared to last CT scan in October 2016. Radiation and oncology has been consulted and pulmonary following this patient. 3. Chronic obstructive pulmonary disease without exacerbation. 4. 80 Pack-years of smoking. 5. Hypovolemic hyponatremia possibly due to underlying malignancy as well. 6. Deep venous thrombosis prophylaxis. SCDs. 7. Possible pneumonia suspected. DISCUSSION AND PLAN: The patient will be continued on antibiotics in the form of ceftriaxone and continue the breathing treatments as needed and follow up biopsy report. Radiation oncology has been consulted. Otherwise, continue to follow closely. Monitor H&H. MTDD
[2017-03-04] MEDS: LACTATED RINGERS 1,000 ML IV SCH (06:31)
[2017-03-04 06:57] LABS: Glucose,Whole Blood 139 mg/dL (75-99)
[2017-03-04 07:19] VITALS: BP 128/85; PULSE 85; RESP 18; TEMP 97.5
[2017-03-04] MEDS: IPRATROPIUM-ALBUTEROL 3 ML NEB INHALATION SCH ×2 (07:28→11:16)
[2017-03-04] MEDS: methylPREDNISolone SOD SUCCI 40 MG/ML 1 ML VIAL IV SCH (08:29)
[2017-03-04] MEDS: FUROSEMIDE 40 MG TAB PO SCH (08:30)
[2017-03-04] MEDS: PANTOPRAZOLE 40 MG/10 ML VIAL IVP SCH (08:30)
[2017-03-04] MEDS: amLODIPine 10 MG TAB PO SCH (08:30)
[2017-03-04] MEDS: INSULIN LISPRO (humaLOG) 300 UNIT/3 ML VIAL SQ SCH ×2 (08:38→13:26)
[2017-03-04 12:25] LABS: Glucose,Whole Blood 122 mg/dL (75-99)
--- NOTE | 2017-03-04 13:25 | PN ---
Mr. Anthony Johnson was seen, evaluated, examined on fourth floor. Clinically patient is doing better. Still has some streaks of blood, but severity has improved, though. I have discussed with radiation oncologist and multiple times discussed with the patient and family yesterday and today. The patient is going for palliative radiation starting next week. He wants to go home. At this point of time he is breathing comfortably. No other specific complaints are present. Denies any chest pain. His last set of vitals include blood pressure is 130/80, respiratory rate 18, pulse 85, temperature 97, saturation 93%. HEENT: Atraumatic, normocephalic. Pharynx clear. Narrow pharyngeal opening is present. NECK: Supple without lymphadenopathy, jugular venous distention or carotid bruit. LUNGS: Bilateral good air entry is present with a few crackles on the right side. HEART: Regular rate and rhythm. ABDOMEN: Soft. No rebound or rigidity. EXTREMITIES: +1 peripheral pulses. NEUROLOGICAL EXAMINATION: Otherwise, awake and alert. Culture results and report from bronchial washing has been reviewed. Biopsy results are pending. AFB and mycobacterial fungal cultures are pending as well. Gram stain preliminary negative. No organism is seen. So far no growth has been seen. Other laboratory data reviewed as well. Current medications reviewed. IMPRESSION: 1. Component of postobstructive pneumonia. 2. Large right-sided lung mass eroding into the right main stem bronchus. 3. Uncontrolled diabetes and hypertension. 4. Congestive heart failure. 5. Hypertension, hypertensive cardiovascular disease. 6. Extensive history of chronic obstructive pulmonary disease and smoking. PLAN AND RECOMMENDATIONS: As above. Continue supportive care. Continue antibiotics and breathing treatments. I agree with discharge planning. Will follow up in outpatient setting. I would write a script for Medrol Dosepak and empiric antibiotics as well. The patient has been recommended to continue breathing medicine at home.
[2017-03-06 10:04] LABS: Mis test requested (Non-blood) PNEJ
[2017-03-06 10:24] LABS: Mis test requested (Non-blood) Legionella PCR Bronc
[2017-03-06 13:25] LABS: CVD Source Feces
--- NOTE | 2017-03-28 10:17 | P.PCN ---
Date of Procedure: 03/28/17 Preoperative Diagnosis: Right-sided lung mass, hemoptysis, postobstructive pneumonia Postoperative Diagnosis: As above Procedure(s) Performed: #1 bronchoscopy #2 bronchial alveolar lavage #3 bronchial biopsy #4 bronchial brush #5 transbronchial lung biopsy under fluoroscopy Implants: Anesthesia: local, other Surgeon: Ravindra Ritchie Estimated Blood Loss (ml): 15 Pathology: other ([facility] biopsy and lavage send) Condition: stable Disposition: observation Indications for Procedure: Operative Findings: Large fungating oozing and bleeding mass present in the bronchus intermedius right after the region of right upper lobe bronchus on the right side Description of Procedure: As above, patient prepared and draped in a usual fashion informed consent obtained from the patient, risks and complications and alternatives were explained to the patient at length, scope was passed through the right nares, the vocal cords were normal structure and function scope was passed beyond the vocal cord diffuse erythema and edema especially on the right side was noted left upper lobe lingular lobe and left lower lobe along with subsegment was inspected no endobronchial mass lesions present on the left side, the right upper lobe region was normal along with its trifurcation. Right after the region of right upper lobe bronchus there is a fungating oozing blood mass present nearly a point the whole lumen of the right lower lobe bronchus was occupied with it. Patient underwent bronchial biopsy and a large there was was a technically challenging study as the blood was occluding the lens. Fluoroscope was utilized to perform transbronchial lung biopsy patient tolerated procedure well no complications noted post procedure chest x-ray pending.
--- NOTE | 2017-04-26 08:43 | DS ---
DATE OF ADMISSION: 03/02/2017 DATE OF DISCHARGE: 03/04/2017 DISCHARGE DIAGNOSES: 1. Hemoptysis secondary to perihilar mass with bronchial interaction. No active bleeding at this time. 2. Lung malignancy, status post bronchoscopy and biopsy. Patient will be following with Radiation Oncology for palliative treatment. Mass increased in size compared to last CT scan in October 2016. 3. Chronic obstructive pulmonary disease with exacerbation. 4. An 80-pack years of smoking. 5. Hypovolemic hyponatremia and also underlying malignancy. 6. Suspected pneumonia. HOSPITAL COURSE: Mr. Johnson is a 66-year-old male with known history of COPD and an 80-pack years of smoking and recently diagnosed right perihilar mass in October of 2016 and refused further workup at that time. The patient admitted to the hospital with hemoptysis. Patient was seen by Pulmonary. Patient underwent bronchoscopy and biopsy. Currently, no evidence of hemoptysis found. Hemoglobin is stable. The patient was seen by Pulmonary and recommended to follow with Radiation Oncology. Appointment has been made and patient will be following with Radiation Oncology for palliative radiation. Otherwise, patient was treated with antibiotics and breathing treatments, did improve clinically. Patient will be discharged home in stable condition. Prognosis poor otherwise. DISCHARGE PHYSICAL EXAMINATION: A 66-year-old male lying in bed, awake, alert, oriented x3. Appears to be in no apparent distress. VITALS: Blood pressure is 128/85. Pulse is 85. Respirations 18. Temperature afebrile. Pulse ox 93% on room air LABORATORY DATA: Reviewed. DISCHARGE PHYSICAL EXAMINATION: Done. Discharge medications include: 1. Lasix 40 mg p.o. daily. 2. Ativan 0.5 mg p.o. daily. 3. Losartan 100 mg p.o. at bedtime. 4. Potassium chloride 10 mEq p.o. daily. 5. Amlodipine 10 mg p.o. daily. 6. DuoNeb 3 mL inhalation q.i.d. p.r.n. for short of breath. 7. Amoxicillin 1 tablet p.o. b.i.d. 8. Ibuprofen 200 to 400 mg p.o. q.6 hourly p.r.n. for pain. The patient will be discharged home in stable condition. Follow with Dr. Sung in [address] Ritchie. Follow with Dr. Snyder. Home with self care. Activity as tolerated. MTDD
== END 2017-03-04 14:29 | disposition home or self-care (01) | DRG 166 ==
LOC: EC 15:14 → INTOOBSV 18:48 → 4MS4W 18:48 → OBSVTOIN 03-02 16:55
PROVIDERS: ADMIT Internal Medicine; ATTEND Internal Medicine
PROC: 0CJS8ZZ Inspection of Larynx, Via Natural or Artificial Opening Endoscopic (ICD-10-PCS; 2017-03-01)
PROC: 0B938ZX Drainage of Right Main Bronchus, Via Natural or Artificial Opening Endoscopic, Diagnostic (ICD-10-PCS; principal; 2017-03-03 09:00)
PROC: 0BBF8ZX Excision of Right Lower Lung Lobe, Via Natural or Artificial Opening Endoscopic, Diagnostic (ICD-10-PCS; 2017-03-03 09:00)
DX: C34.31 Malignant neoplasm of lower lobe, right bronchus or lung (principal); J18.9 Pneumonia, unspecified organism; I11.0 Hypertensive heart disease with heart failure; I50.32 Chronic diastolic (congestive) heart failure; E11.65 Type 2 diabetes mellitus with hyperglycemia; B02.9 Zoster without complications; J44.0 Chronic obstructive pulmonary disease with (acute) lower respiratory infection; J44.1 Chronic obstructive pulmonary disease with (acute) exacerbation; J44.9 Chronic obstructive pulmonary disease, unspecified; D62 Acute posthemorrhagic anemia; E87.1 Hypo-osmolality and hyponatremia; Z51.5 Encounter for palliative care; R04.2 Hemoptysis; R04.0 Epistaxis; E66.01 Morbid (severe) obesity due to excess calories; R59.0 Localized enlarged lymph nodes; R91.8 Other nonspecific abnormal finding of lung field; F17.200 Nicotine dependence, unspecified, uncomplicated; Z68.31 Body mass index [BMI] 31.0-31.9, adult; Z79.82 Long term (current) use of aspirin; Z79.899 Other long term (current) drug therapy; Z87.01 Personal history of pneumonia (recurrent); Z53.20 Procedure and treatment not carried out because of patient's decision for unspecified reasons
CPT/HCPCS: 31624; 31625; 36415; 71020; 71250; 80048; 80053; 82272; 82550; 82553; 83036; 83880; 84484; 85025; 85027; 85610; 85730; 87070; 87102; 87116; 87205; 87206; 87252; 87299; 87498; 87541; 87798; 88108; 88305; 93005; 94640; 94760; 96374; 96375; 99285

== ENCOUNTER 2017-03-28 08:02 | Day surgery (SDC) | payer MEDICARE ==
[2017-03-24 09:17] VITALS: BMI 31.8
[~2017-03-28 08:02] MED LIST: DEXAMETHASONE SOD PHOSPHATE 10 MG/ML 1 ML VIAL IV ONE; HYDROmorphone 1 MG/ML 1 ML SYRINGE IVP PRN; LACTATED RINGERS 1,000 ML IV SCH; ONDANSETRON 4 MG/2 ML VIAL IVP ONE; Pre Op ABX Message 1 EACH MISC MISCELLANE ONE
[2017-03-28] MEDS ORDERED: LIDOCAINE 1% 20 ML VIAL (10MG/ML) FOR IV START INTRADERMA ONE (08:23)
[2017-03-28 08:29] LABS: Glucose,Whole Blood 98 mg/dL (75-99)
[2017-03-28 08:39] VITALS: TEMP 97.8
[2017-03-28] MEDS ORDERED: PROPOFOL 10 MG/ML 20 ML VIAL IV ONE (09:32)
--- NOTE | 2017-03-28 10:17 | P.PCN ---
Date of Procedure: 03/28/17 Preoperative Diagnosis: Right-sided lung mass, hemoptysis, postobstructive pneumonia Postoperative Diagnosis: As above Procedure(s) Performed: #1 bronchoscopy #2 bronchial alveolar lavage #3 bronchial biopsy #4 bronchial brush #5 transbronchial lung biopsy under fluoroscopy Anesthesia: local, other Surgeon: Ravindra Ritchie Estimated Blood Loss (ml): 15 Pathology: other ([facility] biopsy and lavage send) Condition: stable Disposition: observation Operative Findings: Large fungating oozing and bleeding mass present in the bronchus intermedius right after the region of right upper lobe bronchus on the right side Description of Procedure: As above, patient prepared and draped in a usual fashion informed consent obtained from the patient, risks and complications and alternatives were explained to the patient at length, scope was passed through the right nares, the vocal cords were normal structure and function scope was passed beyond the vocal cord diffuse erythema and edema especially on the right side was noted left upper lobe lingular lobe and left lower lobe along with subsegment was inspected no endobronchial mass lesions present on the left side, the right upper lobe region was normal along with its trifurcation. Right after the region of right upper lobe bronchus there is a fungating oozing blood mass present nearly a point the whole lumen of the right lower lobe bronchus was occupied with it. Patient underwent bronchial biopsy and a large there was was a technically challenging study as the blood was occluding the lens. Fluoroscope was utilized to perform transbronchial lung biopsy patient tolerated procedure well no complications noted post procedure chest x-ray pending.
--- NOTE | 2017-03-28 10:38 | XR ---
EXAMINATION TYPE: XR chest 1V portable DATE OF EXAM: 03/28/2017 HISTORY: post biopsy, rll bronchus. REFERENCE: Previous study dated 02/28/2017. FINDINGS: There is a right hilar mass. There is consolidation at the right lung base. The left lung i s clear. The heart is mildly enlarged. I cannot exclude a small loculated pneumothorax on the right. IMPRESSION: 1. RIGHT HILAR MASS. 2. RIGHT BASILAR AIRSPACE DISEASE, WORSENED FROM PREVIOUS. 3. CARDIOMEGALY. 4. I CANNOT EXCLUDE A TINY LOCULATED PNEUMOTHORAX ON THE RIGHT.
--- NOTE | 2017-03-28 10:40 | FL ---
FLUOROSCOPY 2 minutes and 4 seconds of fluoroscopy time were utilized during bronchoscopy. 0 images document the procedure.
[2017-03-28 11:23] VITALS: BP 165/89; PULSE 89; RESP 18
== END 2017-03-28 11:28 | disposition home or self-care (01) ==
LOC: ORWHC2ENDO 08:02
PROVIDERS: ATTEND Internal Medicine Sleep Medicine
DX: D02.21 Carcinoma in situ of right bronchus and lung (principal); J18.9 Pneumonia, unspecified organism; R04.2 Hemoptysis; J44.9 Chronic obstructive pulmonary disease, unspecified; I11.9 Hypertensive heart disease without heart failure; Z79.52 Long term (current) use of systemic steroids; Z79.899 Other long term (current) drug therapy
CPT/HCPCS: 87798 ×4; 87496; 87498; 87529 ×2; 88104; 88108; 88305; 88342; 87252; 87502 ×2; 88341; 87070; 87205; 87116; 87102; 87077; 87186; 87206; 71010; 31625; 31623; 31624; J2704

== ENCOUNTER → 2017-04-20 | Outpatient (CLI) | payer MEDICARE ==
--- NOTE | 2017-04-20 12:34 | XR ---
EXAMINATION TYPE: XR chest 2V DATE OF EXAM: 04/20/2017 COMPARISON: 03/28/2017 TECHNIQUE: PA and lateral views submitted. HISTORY: Shortness of breath FINDINGS: Right-sided consolidation and hilar enlargement with possible mass are stable. Underlying COPD and ca rdiomegaly stable. Biapical pleural thickening. No overt failure. Tiny right-sided pleural effusion. IMPRESSION: 1. Stable right-sided area of consolidation and pleural effusion. Right hilar mass suspected.
== END | disposition home or self-care (01) ==
LOC: RADXRMAIN 12:14
PROVIDERS: ATTEND Internal Medicine Sleep Medicine
DX: J18.1 Lobar pneumonia, unspecified organism (principal); J90 Pleural effusion, not elsewhere classified
CPT/HCPCS: 71020